=== PATIENT | male | born 1930 | race Caucasian/White ===

== ENCOUNTER 2017-02-10 10:31 | Inpatient (IN) | payer MEDICARE, MEDICAID ==
[2017-02-10] VITALS (14 sets, daily range): BP systolic 87–122; BP diastolic 50–67; PULSE 64–90; RESP 13–17; O2SAT 95–100
[~2017-02-10] VITALS: Ht 177.8 cm; Wt 81.8 kg
[~2017-02-10 10:31] MED LIST: Dexamethasone 4 mg/mL Inj ONE; EPHEDrine/NS 5 mg/mL 5 mL Syringe ONE; Ondansetron 2 mg/mL 2 mL Inj ONE; Phenylephrine/NS 100 mCg/mL 10 mL Syringe IVPUSH ONE; Propofol 10,000 mCg/mL 20 mL Inj ONE
--- NOTE | 2017-02-10 11:16 | ED.REPORT ---
HPI- Male Date of Service Feb 10, 2017 ED Provider: Ramon Chacko PA-C Mr. Ledesma is an 86-year-old gentleman with a history of dementia presenting with a chief complaint of swollen scrotum. Patient can provide no pertinent history, denies pain and is unsure why he is in the hospital. According to records his nurse practitioner noted swollen scrotum this morning and referred to emergency department via BLS for evaluation. Patient's resuscitation status is DO NOT RESUSCITATE, comfort measures only. Nursing Notes Stated Complaint: SCROTAL EDEMA Chief Complaint: Male Abdominal Pain Nursing Notes Reviewed: Yes Allergies: Coded Allergies: No Known Allergies (Unverified , 02/10/17) No Active Prescriptions or Reported Meds General Time Seen by MD: 11:08 Chief Complaint Scrotal swelling Past Medical History Past Medical History Dementia Past medical history obtained from records from [facility]: Coronary artery disease next sign hypothyroid Hypertension Hypercholesterolemia next line BPH Atrial fibrillation History of recurrent urinary tract infections History of feeding difficultie Type II diabetes History of sick sinus syndrome, third-degree AV block, subsequent pacemaker placement History CVA history of [place]'s Past Surgical History Pacemaker insertion History of right-sided carotid endarterectomy Social History Patient has a POLST form indicating DO NOT RESUSCITATE, comfort measures only dated December 2015 Comes from [facility] Drug Use: Denies drug use Review of Systems Unable to Obtain ROS Mental status Physical Exam General: Elderly, frail, no acute distress. Head: Atraumatic, normocephalic. Eyes: No scleral icterus or injection. No discharge. Vision grossly intact. ENT: Voice clear, hearing grossly intact. Respiratory: Regular rate and rhythm. Breath sounds present, clear to auscultation and equal bilaterally. No respiratory distress. No increased work of breathing, speaks in complete sentences. Cardiovascular: Regular rate and rhythm, without murmur, gallop or rub. No pedal edema. Gastrointestinal: Abdomen flat and mildly tender suprapubically without rebound. Bowel sounds normoactive. Genitourinary: Normal uncircumcised penis, scrotum is red and swollen, firm and tender. Is difficult to differentiate anatomy. Skin: Warm and dry. Neurological: Grossly nonfocal. Psychological: Alert and oriented. He is unsure why he is in the hospital. Initial Vital Signs Vital Signs (First) Date Time Temp Pulse Resp B/P Pulse Ox O2 Delivery O2 Flow Rate FiO2 02/10/17 10:31 36.7 68 16 101/58 95 Room Air Initial VS: Reviewed, Vital signs abnormal Interpretation & Diagnostics Lab Results Interpretation Result Diagram: 02/10/17 1205 02/10/17 1205 Test 02/10/17 12:05 White Blood Count 15.9th/mm3 (3.8-10.1) Red Blood Count 3.48mil/mm3 (4.40-5.80) Hemoglobin 10.6g/dL (13.8-17.2) Hematocrit 32.4% (41.0-50.0) Mean Corpuscular Volume 93.1fL (81-100) Mean Corpuscular Hemoglobin 30.5pg (27.0-35.0) Mean Corpuscular Hemoglobin Concent 32.7% (32.0-37.0) Red Cell Distribution Width 12.7% (12.3-15.4) Platelet Count 455bil/L (150-400) Neutrophils (%) (Auto) 77.8% (40-74) Lymphocytes (%) (Auto) 11.1% (14-46) Monocytes (%) (Auto) 8.9% (4-12) Eosinophils (%) (Auto) 1.2% (0-5) Basophils (%) (Auto) 0.2% (0-3) Sodium Level 130mEq/L (134-144) Potassium Level 3.6mEq/L (3.5-5.2) Chloride Level 91mEq/L (97-108) Carbon Dioxide Level 25mmol/L (18-29) Blood Urea Nitrogen 17mg/dL (8-27) Creatinine 0.84mg/dL (0.76-1.27) Estimat Glomerular Filtration Rate 92mL/min (>59) Glucose Level 110mg/dL (60-99) Lactic Acid Level 1.2mmol/L (0.4-2.0) Calcium Level 9.1mg/dL (8.5-10.1) Total Bilirubin 0.4mg/dL (0.0-1.2) Aspartate Amino Transf (AST/SGOT) 18U/L (0-50) Alanine Aminotransferase (ALT/SGPT) 19U/L (0-44) Alkaline Phosphatase 62U/L (25-160) Total Protein 6.8g/dL (6.4-8.4) Albumin 2.6g/dL (3.4-5.0) Lipase 23U/L (13-60) Lab Results Interpretation: CBC positive leukocytosis CMP normal Lactic acid normal Blood cultures 2 pending Urinalysis Re-Eval/Medical Decision Med Decision/Clinical Course 86-year-old bedridden male with significant dementia presents chief complaint swollen testes. He can provide no significant history. Her son reveals a left testicular abscess as well as epididymitis and intratesticular cyst. Treatment is initiated with morphine, Zosyn, vancomycin, IV fluids after discussion with Dr. Uriostegui. Dr. Thomas, agrees with plan to admit, reviews imaging and state the patient to surgery. He is unsure of his last meal. Discussed case with hospitalist, who accepts admission. Patient is transferred to the floor in stable condition. Source of Hx: Old records Consultation #1: Referral / Consult Name: Esther Thomsa MD Call Returned at: 11:57 Note: Agrees with plan to admit, will see in the hospital. Consultation #2: Referral / Consult Name: Rik Casey MD Consulted With: Hospitalist Call Returned at: 12:36 Dust Operator: Accepts admit Consultation #3: Referral / Consult Name: Esther Thomas MD Consulted With: Urology Call Returned at: 12:41 Note: Discussed the case with Dr. Thomas, who reviewed imaging and plans to take the patient to surgery. Patient is unsure of the last time he ate. She requests he remained nothing by mouth. Discharge & Departure Departure Notes COMFORT CARE Impression: Primary Impression: Testicular abscess Additional Impressions: Orchitis Sepsis Balanitis Disposition: ADMITTED TO HOSPITAL EDSupervising Provider for APC: Boni Uriostegui MD Attending Statment This is an 86-year-old male sent from the skilled nursing she seen by the mid- level provider. Person to interview and examine the patient. Found to have a scrotal abscess. He is a diabetic, and did have a marginal blood pressures concerning for sepsis. Although he does not have an elevated lactic acid. The patient is however fully comfort care. However the scrotal abscess appears quite uncomfortable so management is being pursued. The plan is operative management in the OR. His receiving IV fluids, given the hypotension-is also receiving a dose of steroids. The records sent from the skilled nursing mention [place]'s in the past, so random cortisol is been added-although is not on any steroid replacement, and is unclear if there is consistent and accurate diagnosis in the past. The patient's had a Vega placed with a large amount of purulent material around the penis and under the foreskin identified. The patient's been started on vancomycin and Zosyn Ramon Chacko PA-C Feb 10, 2017 11:16 Boni Uriostegui MD Feb 10, 2017 14:10
[2017-02-10] MEDS ORDERED: Vancomycin Dose per Pharmacist XX ONE (11:50)
[2017-02-10] MEDS ORDERED: 0.9% Sodium Chloride 1,000 ML IV ONE (11:50)
[2017-02-10] MEDS ORDERED: Piperacillin-Tazo 3.375 Gm Inj 3.375 GM in Dextrose 5% Minibag Plus 50 ML IV ONE (11:50)
[2017-02-10] MEDS ORDERED: HYDROmorphone 0.5 mg/0.5 mL iSecure Syringe IVPUSH PRN (11:50)
[2017-02-10 12:25] LABS: BASOPHILS % (AUTO) 0.2 % (0-3); EOSINOPHILS % (AUTO) 1.2 % (0-5); MONOCYTES % (AUTO) 8.9 % (4-12); Mean Corpuscular Hemoglobin 30.5 pg (27.0-35.0); Mean Corpuscular Volume 93.1 fL (81-100); NEUTROPHILS % (AUTO) 77.8 % (40-74); Platelet Count 455 bil/L (150-400)
[2017-02-10] MEDS ORDERED: Vancomycin Inj 1,500 MG in 0.9% Sodium Chloride 500 ML IV ONE (12:30)
[2017-02-10] MEDS ORDERED: 0.9% Sodium Chloride 500 ML IV ONE (14:00)
[2017-02-10] MEDS ORDERED: Hydrocortisone 50 mg/mL 2 mL Inj IVPUSH ONE (14:10)
[2017-02-10] MEDS ORDERED: Lidocaine 2% 6mL Topical Jelly TOPICAL ONE (14:10)
--- NOTE | 2017-02-10 14:29 | DRSVH ---
PROCEDURE: US TESTICULAR SONOGRAM WITH DOPPLER INDICATIONS: swollen scrotum TECHNIQUE: Real-time scanning was performed of the scrotum and testicles, with image documentation. Color and p ulse Doppler interrogation was performed of both testicles. COMPARISON: None. FINDINGS: Right: Testicle is normal in size at 2.8 x 1.7 x 2.7 cm, and diffusely heterogeneous. Epididymis is normal in overall size and morphology. Subcentimeter epididymal cyst. No hydrocele or varicoceles. Overlying scrotal skin is normal in thickness. Left: Testicle is normal in size at 3.4 x 2 point the portal cm, and diffusely heterogeneous and the re is a roughly 18 mm simple testicular cyst. . Epididymis is normal in overall size and morphology . Subcentimeter epididymal cyst. Complex left hydrocele is present with multiple punctate echogenic foci present raising the question of internal gas. Overlying scrotal skin is abnormally thickened.. Doppler: Color and pulse Doppler demonstrate normal and symmetric arterial flow in both testicles. IMPRESSION: 1. Heterogeneity of the testicles bilaterally with increased vascularity involving the left testicle raising the question of orchitis. Correlate clinically. Continued sonographic surveillance of both testicles is recommended. 2. Complex left hydrocele present with probable internal gas given the sonographic appearance and abs cess (pyoocele) is suspected. Urologic consultation is recommended. 3. Bilateral epididymal cysts. Dictated by: Christopher GRAHAM Interpreted: Chris Pritchett MD on 02/10/2017 at 13:50 Approved by: Chris Pritchett M.D. on 02/10/2017 at 14:26
[2017-02-10] MEDS ORDERED: Polyethylene Glycol (PEG) 17 Gm Powder PO PRN (15:10)
[2017-02-10] MEDS ORDERED: Alum-Mag Hydrox-Simeth 30 mL Suspension PO PRN (15:10)
[2017-02-10] MEDS ORDERED: Ondansetron 2 mg/mL 2 mL Inj IVPUSH PRN ×2 (15:10→16:25)
[2017-02-10 15:27] LABS: APPEARANCE,URINE TURBID (CLEAR,HAZY); COLOR,URINE STRAW (YELLOW); PH,URINE 6.5 (5.0-8.0)
[2017-02-10 15:28] LABS: OCCULT BLOOD,URINE MODERATE (NEGATIVE); UROBILINOGEN,URINE NORMAL (NORMAL)
[2017-02-10] MEDS ORDERED: Lactated Ringer's 1,000 ML IV ONE (15:37)
[2017-02-10] MEDS ORDERED: Vancomycin 1,000 mg Inj IRRIGATION ONE (16:00)
[2017-02-10] MEDS ORDERED: Bupivacaine-MPF 0.5% 30 mL Inj INFILTRATE ONE (16:00)
[2017-02-10] MEDS ORDERED: Piperacillin-Tazo 3.375 Gm Inj 3.375 GM in Dextrose 5% Minibag Plus 50 ML IV SCH ×2 (16:00→16:30)
[2017-02-10] MEDS ORDERED: Gentamicin 40 mg/mL 2 mL Inj IRRIGATION ONE (16:00)
[2017-02-10] MEDS ORDERED: Atropine 0.4 mg/mL Inj IVPUSH PRN (16:25)
[2017-02-10] MEDS ORDERED: fentaNYL-PF 50 mCg/mL 2 mL Inj IVPUSH PRN (16:25)
[2017-02-10] MEDS ORDERED: Lactated Ringer's 1,000 ML IV SCH (16:25)
[2017-02-10] MEDS ORDERED: Lactated Ringer's 500 ML IV PRN (16:25)
[2017-02-10] MEDS ORDERED: Phenylephrine 10,000 mCg/mL Inj IVPUSH PRN (16:25)
[2017-02-10] MEDS ORDERED: Labetalol 5 mg/mL 4 mL Inj IV PRN (16:25)
[2017-02-10] MEDS ORDERED: EPHEDrine Sulfate 50 mg/mL Inj IVPUSH PRN (16:25)
--- NOTE | 2017-02-10 16:25 | PCM.HPANE ---
Patient Data Surgeon Admitting Provider:Rik Casey MD Attending Provider:Rik Casey MD Primary Care Physician:Yasmin Schumacher MD Other Provider: Reason for Visit Arthritis/Testicular Abscess Ht/WT & BMI Height (Feet): 5 Height (Inches): 10 Weight (Kilograms): 81.8 Body Mass Index Allergies Coded Allergies: No Known Allergies (Unverified , 02/10/17) Past Anesthesia History Anesthesia History: Denies:: Abnormal Airway, Anesthesia Reactions, Difficult Intubation, Fam Anesthesia Reaction, Fam Malignant Hypertherm, Malignant Hyperthermia Diabetes History Hx Diabetes?: Yes (DMII) History History of ENT Problems?: No HEENT History: Denies:: Abnormal Airway Cataracts Difficult Intubation Dysphagia Glaucoma Hearing Problem Sinus Problem TMJ Denture Type: Full- Upper Full- Lower Teeth Condition: Missing Teeth Hx of Heart Problems?: No Cardiovascular History: Positive for:: Hypertension Denies:: AICD Abdominal Aortic Aneurism Atrial Fibrillation Cardiac Surgery Chest Pain Congestive Heart Failure Coronary Artery Disease Edema Heart Murmur Irregular Heartbeat Pacemaker Peripheral Vascular Rheumatic Fever Thrombophlebitis Valvular Heart Disease Hx of Respiratory Problem?: No Respiratory History: Denies:: Asthma COPD Chest Surgery Cough Dyspnea Emphysema Hemoptysis Oxygen Administration Pneumonia Pulmonary Embolism Tuberculosis Use of C-PAP Machine Use of Inhalers / NEBS Hx Neurologic Problems?: Yes Neurological History: Positive for:: Alzheimer's Disease Denies:: CVA Dementia Dizziness Headaches Multiple Sclerosis Parkinson's Disease Peripheral Neuropathy Seizures TIA Hx of GI Problems?: No Gastrointestinal History: Denies:: Cirrhosis Diverticulitis Gall Bladder Disease Gastroesphageal Reflux Gastrointestinal Bleeding Heartburn Hepatitis Hiatal Hernia Liver Disease Rectal Bleeding Hx of Problems?: Yes Genitourinary History: Positive for:: Urinary Tract Infection Denies:: HX of Hemodialysis Kidney Stones HX of Peritoneal Dialysis: No Male Hx: Positive for:: Scrotal Mass (abscess) Denies:: Prostate Problems Testicular Surgery Skin History: Denies:: History Skin Disorders? Pressure Ulcers Hx Musculoskeletal Problems?: No Musculoskeletal History: Denies:: Back Injury Degenerative Joint Fibromyalgia Joint Replacement Musculoskeletal Trauma Myasthenia Gravis Osteoarthritis Rheumatoid Arthritis Systemic Lupus Hx of Psycho/Social Problems?: No Psycho Social History: Denies:: Anxiety Bipolar Disorder Hx Depression Suicide Attempt Hx Surgeries?: Yes Other History: Denies:: Cancer Endocrine Disease Hospitalization Thyroid Disease History Blood Transfusions: Denies:: Accept Blood Products? Blood Transfuse Reaction Blood Transfusions Hx Diabetes: Yes (DMII) Hx Alcohol Use: NoHx Substance Use: No Stop/Bang Risk Assessment Category Category 1A: Patient has history of documented sleep apnea, and HAS NOT received any narcotic, sedative or anesthesia administration during this stay. Category 1B: Patient has history of documented sleep apnea, and HAS received any narcotic , sedative or anesthesia administration during this stay Category 2: Patient has SUSPECTED Obstructive Sleep Apnea, and HAS received any narcotic , sedative or anesthesia administration during this stay. Category 3: Patient has SUSPECTED Obstructive Sleep Apnea and HAS NOT received narcotic, sedative or anesthesia administration during this stay. Category 4: Outpatient in Procedural Areas with known sleep apnea or who screen positive for High Risk via the STOP/BANG questionnaire. Exam Exam Vital Signs Vital Signs Date Time Temp Pulse Resp B/P Pulse Ox O2 Delivery O2 Flow Rate FiO2 02/10/17 14:26 36.8 65 17 111/50 97 Room Air 02/10/17 13:54 36.0 64 87/52 98 Room Air 02/10/17 12:24 36.8 70 17 91/57 95 Room Air 02/10/17 10:31 36.7 68 16 101/58 95 Room Air General Appearance: Other (severe dementia consent obtained from [facility]) HEENT/AIRWAY: MP 2, Neck Movement (FROM), Mouth Opening (3 FBMO) Lungs: Normal Air Movement Heart: Other (pacemaker, paced rhythm over A fib) Meds/Labs/Diagnostics Admission Meds Current Medications Sodium Chloride 1,000 ml @ 0 mls/hr Q0M ONCE IV Last administered on 02/10/17 12:17; Start 02/10/17 at 11:50; Stop 02/10/17 at 11:58; Status DC Piperacillin Sod/ Tazobactam Sod 3.375 gm/Dextrose/ Water 50 ml @ 100 mls/hr ONCE ONCE IV Last administered on 02/10/17 12:17; Start 02/10/17 at 11:50; Stop 02/10/17 at 12:25; Status DC Vancomycin HCl 1500 mg/Sodium Chloride 500 ml @ 333.333 mls/hr ONCE ONCE IV Last administered on 02/10/17 12:52; Start 02/10/17 at 12:30; Stop 8/4/17 at 13: 59; Status DC Sodium Chloride (Normal Saline) 500 ml @ 0 mls/hr Q0M ONCE IV Last administered on 02/10/17t 14:04; Start 02/10/17 at 14:00; Stop 02/10/17 at 14:01; Status DC Labs Test 02/10/17 12:05 02/10/17 14:56 White Blood Count 15.9th/mm3 (3.8-10.1) Red Blood Count 3.48mil/mm3 (4.40-5.80) Hemoglobin 10.6g/dL (13.8-17.2) Hematocrit 32.4% (41.0-50.0) Mean Corpuscular Volume 93.1fL (81-100) Mean Corpuscular Hemoglobin 30.5pg (27.0-35.0) Mean Corpuscular Hemoglobin Concent 32.7% (32.0-37.0) Red Cell Distribution Width 12.7% (12.3-15.4) Platelet Count 455bil/L (150-400) Neutrophils (%) (Auto) 77.8% (40-74) Lymphocytes (%) (Auto) 11.1% (14-46) Monocytes (%) (Auto) 8.9% (4-12) Eosinophils (%) (Auto) 1.2% (0-5) Basophils (%) (Auto) 0.2% (0-3) Sodium Level 130mEq/L (134-144) Potassium Level 3.6mEq/L (3.5-5.2) Chloride Level 91mEq/L (97-108) Carbon Dioxide Level 25mmol/L (18-29) Blood Urea Nitrogen 17mg/dL (8-27) Creatinine 0.84mg/dL (0.76-1.27) Estimat Glomerular Filtration Rate 92mL/min (>59) Glucose Level 110mg/dL (60-99) Lactic Acid Level 1.2mmol/L (0.4-2.0) Calcium Level 9.1mg/dL (8.5-10.1) Total Bilirubin 0.4mg/dL (0.0-1.2) Aspartate Amino Transf (AST/SGOT) 18U/L (0-50) Alanine Aminotransferase (ALT/SGPT) 19U/L (0-44) Alkaline Phosphatase 62U/L (25-160) Total Protein 6.8g/dL (6.4-8.4) Albumin 2.6g/dL (3.4-5.0) Lipase 23U/L (13-60) Plan Impression Patient chart reviewed, patient interviewed and anesthestic plan with risks, benefits, and alternatives discussed, and informed consent obtained. NPO per Anesth. Guidelines: Yes ASA Physical Status: ASA4 Plus Emergency (severe alzheimers) Anesthetic Plan: GA Bene/Risks/Altern/Consents: Yes HP Complete Prior to Induction: Yes Colt Blanc MD Feb 10, 2017 15:26
--- NOTE | 2017-02-10 16:41 | PCM.HPMED ---
Subjective Date of Service Feb 10, 2017 Primary Provider: Admitting Physician: Rik Casey MD Primary Care Physician: Yasmin Schumacher MD Attending Physician: Rik Casey MD Admit Status: From the Emergency Department, Admit to [facility] Team Chief Complaint: Testicular swelling History of Present Illness: 86 yo M h/o CAD, HTN, HLD, Atrial fibrillation, T2DM, Hx of Sick Sinus Syndrome s/p AICD, Hx of CVA, Hx of recurrent UTI's of severe dementia presenting with Left scrotal swelling. Pt is confused and note sure why in hospital. Pt can provide no history. History taken from chart and [facility]'s records. Per ED note- Her son reveals a left testicular abscess as well as epididymitis and intratesticular cyst. Treatment is initiated with morphine, Zosyn, vancomycin, IV fluids after discussion with Dr. Uriostegui. Dr. Thomas, agrees with plan to admit, reviews imaging and state the patient to surgery. .marginal blood pressures concerning for sepsis. Although he does not have an elevated lactic acid. The patient is however fully comfort care. However the scrotal abscess appears quite uncomfortable so management is being pursued. The plan is operative management in the OR. His receiving IV fluids, given the hypotension-is also receiving a dose of steroids. The records sent from the [facility] mention [place] in the past, so random cortisol is been added- although is not on any steroid replacement, and is unclear if there is consistent and accurate diagnosis in the past. The patient's had a Vega placed with a large amount of purulent material around the penis and under the foreskin identified. The patient's been started on vancomycin and Zosyn. Allergies Coded Allergies: No Known Allergies (Unverified , 02/10/17) PMH Dementia Past medical history obtained from records from [facility]: Coronary artery disease next sign hypothyroid Hypertension Hypercholesterolemia next line BPH Atrial fibrillation History of recurrent urinary tract infections History of feeding difficultie Type II diabetes History of sick sinus syndrome, third-degree AV block, subsequent pacemaker placement History CVA history of [place] Surgical History Pacemaker insertion History of right-sided carotid endarterectomy Social History Hx Alcohol Use: No Hx Substance Use: No Exam Vital Signs Vital Sign - Last Date Time Temp Pulse Resp B/P Pulse Ox O2 Delivery O2 Flow Rate FiO2 02/10/17 14:26 36.8 65 17 111/50 97 Room Air Exam General: Elderly, frail, no acute distress. Head: Atraumatic, normocephalic. Eyes: No scleral icterus or injection. No discharge. Vision grossly intact. ENT: Voice clear, hearing grossly intact. Respiratory: Regular rate and rhythm. Breath sounds present, clear to auscultation and equal bilaterally. No respiratory distress. No increased work of breathing, speaks in complete sentences. Cardiovascular: Regular rate and rhythm, without murmur, gallop or rub. No pedal edema. Gastrointestinal: Abdomen flat and mildly tender suprapubically without rebound. Bowel sounds normoactive. Genitourinary: Normal uncircumcised penis, scrotum is red and swollen, firm and tender. Is difficult to differentiate anatomy. Skin: Warm and dry. Neurological: Grossly nonfocal. Psychological: Alert and oriented. He is unsure why he is in the hospital. Lab and Diagnostics Result Diagram: 02/10/17 1205 02/10/17 1205 X-Rays, CTs and MRIs 02/10- Testicular US- 1. Heterogeneity of the testicles bilaterally with increased vascularity involving the left testicle raising the question of orchitis. Correlate clinically. Continued sonographic surveillance of both testicles is recommended. 2. Complex left hydrocele present with probable internal gas given the sonographic appearance and abscess (pyoocele) is suspected. Urologic consultation is recommended. 3. Bilateral epididymal cysts Assessment & Plan 86 yo M h/o CAD, HTN, HLD, Atrial fibrillation, T2DM, Hx of Sick Sinus Syndrome s/p AICD, Hx of CVA, Hx of recurrent UTI's of severe dementia presenting with Left scrotal swelling with US finding of Scrotal Abscess, Epididymitis. #Scrotal Abscess s/p Incision and drainage/debridement 02/10- POA, active- 02/10- Testicular US- 1. Heterogeneity of the testicles bilaterally with increased vascularity involving the left testicle raising the question of orchitis. 2. Complex left hydrocele present with probable internal gas given the sonographic appearance and abscess (pyoocele) is suspected. Urologic consultation is recommended. 3. Bilateral epididymal cysts. Lactic Acid 1.2 -Urology, Dr. Thomas consulted. Took pt to OR. -IV Abx- vancomycin and Zosyn given in ED. -Keep NPO until passes swallow. -Pain IV Fentanyl prn. -IVF NS @100 cc/hr. HTN- chronic, active- hold off blood pressure medications. T2DM- Chronic, active. - Sliding Scale Insulin, low dose. CAD- chronic, stable. HLD- chronic, stable. Atrial fibrillation- chronic, stable. Hx of Sick Sinus Syndrome s/p AICD- chronic, stable. cardiac monitoring. Hx of CVA- chronic stable. Code- per POLST, DNR/DNI. Comfort measures only. Dispo- Patient is admitted under inpatient status expected length of stay greater than 2 midnights due to severity of presenting symptoms, risk of adverse events, and complexity of treatment plan. Pain Evaluation: Adequate Pain Control Resuscitation Status: DNR/DNI:Do Not Resuscitate/Intubate Rik Casey MD Feb 10, 2017 16:41
--- NOTE | 2017-02-10 16:56 | PCM.ANEP1 ---
Post Anesthesia PACU Phase 1 Assessment Vital Signs Vital Signs Date Time Temp Pulse Resp B/P Pulse Ox O2 Delivery O2 Flow Rate FiO2 02/10/17 14:26 36.8 65 17 111/50 97 Room Air 02/10/17 13:54 36.0 64 87/52 98 Room Air 02/10/17 12:24 36.8 70 17 91/57 95 Room Air 02/10/17 10:31 36.7 68 16 101/58 95 Room Air Anesthetic Administered: GA Level of Alertness: Sleepy, easy to arouse DIAZ's with Equal Strength: Yes Pain: No Pain Scale Score: 6 Nausea or Vomiting: No CV Function & Hydration Stable: Yes Airway Device: Oxygen Delivery: Room Air Lungs: Normal Air Movement Dermatome Level: Full Sensation PACU Phase 2 Assessment Complications: No Follow up Care: N/A Patient Instructions Provided: N/A Colt Blanc MD Feb 10, 2017 16:56
--- NOTE | 2017-02-10 17:00 | PCM.SURGPO ---
Immediate Operative Note Date of Surgery: Feb 10, 2017 Pre Operative Diagnosis scrotal abscess scrotal cellulitis epididymoorchitis phimosis pyuria leukocytocis Post Operative Diagnosis Same Procedure Incision and drainage/debridement Scrotal Abscess with cultures and packing of wound Dorsal Slit (to severely phimotic foreskin) Cystoscopy (urine culture sent) Surgeon and Field Representatives Director Surgeon: William Assistants: None Findings severe phimosis- dorsal slit done pyuria/hematuria, poor visualization but no urethral or bladder foreign bodies or strictures noted Scrotal abscess. Foul smelling purulence drained and sent for culture pyuria- urine sent for culture at cystoscopy. Complications There were no periprocedural complications identified. Surgical Specimen Removed: No Specimen sent to Pathology: Not applicable Anesthetic Administered: GA Grafts, Implants: None Output, Estimated Blood Loss: 50 Blood Admin during surgery: Esther Zavaleta MD Feb 10, 2017 17:00
[2017-02-10 17:10] LABS: APPEARANCE,URINE CLOUDY (CLEAR,HAZY); COLOR,URINE STRAW (YELLOW); OCCULT BLOOD,URINE LARGE (NEGATIVE); PH,URINE 5.5 (5.0-8.0); UROBILINOGEN,URINE NORMAL (NORMAL)
--- NOTE | 2017-02-10 17:17 | PCM.HPSURG ---
Subjective Date of Service: Feb 10, 2017 Referring Provider: Admitting Physician: Rik Casey MD Primary Care Physician: Yasmin Schumacher MD Attending Physician: Rik Casey MD Chief Complaint I was asked by NETO Chacko and Dr Escalante in the [facility] ER for evaluation and treament recommendations for an 86 y/o gentleman with probably scrotal abscess and epididymoorchitis in setting of dementia and debility. History of Present Illness Pt is an 86 y/o gentleman living at [facility] who was sent to the ER by his care team there for evaluation of scrotal swelling, erythema, scrotal pain and foul smelling urine. His history is also significant for: h/o CAD, HTN, HLD, Atrial fibrillation, T2DM, Hx of Sick Sinus Syndrome s/p AICD, Hx of CVA, Hx of recurrent UTI's of severe dementia presenting with Left scrotal swelling. Pt is confused and note sure why in hospital. Pt can provide no history. Hospitalist History taken from chart and [facility]'s records. At exam he has discomfort with manipulation of the scrotum which is erythematous , enlarged and has findings c/w abscess/purulence anterior inferior scrotal wall with L testicular changes c/w orchitis. Urine in bag is foul in appearance. pt with severe phimosis obscuring meatus/glans completely. Willis in good position despite this. Pt appears to have good hygiene and care in that his genitalia are clean and the skin in good condition with the exception of what appears to be an acute process. He had vancomycin and zosyn orderd in the ER with plans for admission to the hospitalist service He was taken to the OR after consent obtained from his POA- nephew who agreed. His severe phimosis was dealt with with dorsal slit which should make catheter care much easier and also possibly decrease his risk of UTI somewhat in that cleaning the glans will be possible Incision to the ant scrotal wall did reveal large pocket of thin foul smelling purulence which was sent for culture urine from the bladder was sent for culture, no clear urethral stricure or injury or foreign body was seen though visibility to flexible cysoscopy was fair at best. The wound was irrigated with vancomycin and gentamycin and packed with wet to dry gauze. Allergy Allergies: Coded Allergies: No Known Allergies (Unverified , 02/10/17) Social History Hx Alcohol Use: No Hx Substance Use: No PMH HEENT History History of ENT Problems?: No HEENT History: Denies:: Abnormal Airway Cataracts Difficult Intubation Dysphagia Glaucoma Hearing Problem Sinus Problem TMJ Cardiovascular History History of Heart Problems?: No Cardiovascular History: Positive for:: Hypertension Denies:: AICD Abdominal Aortic Aneurism Atrial Fibrillation Cardiac Surgery Chest Pain Congestive Heart Failure Coronary Artery Disease Edema Heart Murmur Irregular Heartbeat Pacemaker Peripheral Vascular Rheumatic Fever Thrombophlebitis Valvular Heart Disease Respiratory History of Respiratory Problem: No Respiratory History: Denies:: Asthma COPD Chest Surgery Cough Dyspnea Emphysema Hemoptysis Oxygen Administration Pneumonia Pulmonary Embolism Tuberculosis Use of C-PAP Machine Use of Inhalers / NEBS Neurological History Hx Neurologic Problems?: Yes Neurological History: Positive for:: Alzheimer's Disease Denies:: CVA Dementia Dizziness Headaches Multiple Sclerosis Parkinson's Disease Peripheral Neuropathy Seizures TIA Gastrointestinal History HX of GI Problems?: No Gastrointestinal History: Denies:: Cirrhosis Diverticulitis Gall Bladder Disease Gastroesphageal Reflux Gastrointestinal Bleeding Heartburn Hepatitis Hiatal Hernia Liver Disease Rectal Bleeding Genitourinary History Hx of Gu Problems?: Yes Genitourinary History: Positive for: Urinary Tract Infection Denies: HX of Hemodialysis Kidney Stones Female/Male History Reproductive History Male: Positive for: Scrotal Mass (abscess) Denies: Prostate Problems Skin History Skin History: Denies:: History Skin Disorders? Pressure Ulcers Musculoskeletal History Hx Musculoskeletal Problems?: No Musculoskeletal History: Denies:: Back Injury Degenerative Joint Fibromyalgia Joint Replacement Musculoskeletal Trauma Myasthenia Gravis Osteoarthritis Rheumatoid Arthritis Systemic Lupus Psycho Social History Hx of Psycho/Social Problems?: No Psycho Social History: Denies:: Anxiety Bipolar Disorder Hx Depression Suicide Attempt Other History Other History: Denies:: Cancer Endocrine Disease Hospitalization Thyroid Disease Diabetes: Yes (DMII) Social History Hx Alcohol Use: NoHx Substance Use: No Review of Systems Constitutional: Denies: Fever ENT: Reports: Dental Problems (dentures), Membranes Dry Cardiovascular: Denies: Chest Pain Respiratory: Denies: Cough Gastrointestinal: Reports: Abdominal Pain, Change in Appetite, Denies: Nausea Genitourinary: Reports: Other (foul odor, cloudy green urine in bag, chronic willis) Musculoskeletal: Reports: Back Pain, Deformity, Limitation of Function, Neck Pain Skin: Reports: Dry or Flakiness, Rash, Denies: Bruising Neurological: Reports: Confusion, Seizures, Weakness Psychologic: Reports: Disorientation, Denies: Nervousness Endocrine: Denies: Polyuria H&P Surgical Exam Exam General: Cooperative (confused, pleasant, not oriented to place or situation, chronic dementia) Neck: Supple (midline trachea, no scars, ) Lungs: Normal Air Movement (no audible ronchi or wheezes no tachypnea) Heart: Exam Unremarkable (warm ext tr dep edema, RR, no JVD supine), Other ( pacemaker, paced rhythm over A fib) Abdomen: Benign, Soft (no masses) Extremities: Warm Neuro: Other (clear speech, confused, symmetric face, assymetric strength) Catheters: Urethral 2 Way Willis (cloudy greenisn urine, foul odor) Additional Information: Scrotal exam as above see HPI Assessment & Plan Assessment Scrotal Abscess Epidydymoorchitis L Scrotal cellulitis pyuria chronic willis phimosis dementia advanced Plan: As above, debrided, cultures pending from scrotal purulence and from bladder urine at cystoscopy Needs WOUND Care consult to facilitate discharge planning Urology will change dressing first time tomorrow 02/11, have requested supplies to bedside-then intital changes will be bid until management taken over by wound care per their recs bacitracin to site of dorsal slit/foreskin bid Agree with broad spectrum antibiotic coverage otherwise until cultures return, supportive care per Hospitalist service. OK to change fluff dressing as needed Will follow with you this admission and can arrange outpatient f/u ultimately after weekend thank you for allowing us to participate in this patient's care please do not hesitate to call with any questions or concerns Resuscitation Status: DNR/DNI:Do Not Resuscitate/Intubate Esther Thomas MD Feb 10, 2017 17:17
[2017-02-10] MEDS ORDERED: Glucose 40% Oral Gel 15 Gm Tube PO PRN (17:25)
--- NOTE | 2017-02-10 17:46 | NUR ---
Post Op Pt arrived to [facility] room 1022 at 1746 via his own bed. ABX running. 3L O2 via NC. Pt showed no s/s of pain or SOB. Pt awakens to his name but is disoriented to time and place. Reminded pt multiple times about place and oriented pt to his procedure. Kenefic alarm placed for safety. Educated pt on use of call light. Scrotal dressing C/D/I. Vega catheter patent and draining to gravity. Care continues.
[2017-02-10] MEDS: 0.9% Sodium Chloride 1,000 ML IV SCH (18:05)
[2017-02-10] MEDS: Insulin LISPRO 300 Unit/3 mL Inj SUBQ SCH ×2 (22:00→22:21)
[2017-02-10] MEDS: Famotidine Inj 20 MG in IV Premix 1 EACH IV SCH (22:12)
[2017-02-11 00:11] VITALS: BP 99/51; PULSE 72; RESP 16; O2SAT 94
[2017-02-11] MEDS: Piperacillin-Tazo 3.375 Gm Inj 3.375 GM in Dextrose 5% Minibag Plus 50 ML IV SCH ×3 (02:19→17:44)
[2017-02-11 04:48] VITALS: BP 94/58; PULSE 66; RESP 18; O2SAT 94
[2017-02-11] MEDS: 0.9% Sodium Chloride 1,000 ML IV SCH ×2 (04:58→15:02)
--- NOTE | 2017-02-11 06:46 | NUR ---
Mentation Remains alert and confused per baseline. Difficulty expressing needs and answering questions during assessment. Appears frightened at times when attempting to perform care but otherwise appears relaxed and comfortable.
[2017-02-11 07:51] LABS: BASOPHILS % (AUTO) 0.3 % (0-3); EOSINOPHILS % (AUTO) 2.1 % (0-5); MONOCYTES % (AUTO) 7.7 % (4-12); Mean Corpuscular Hemoglobin 30.4 pg (27.0-35.0); Mean Corpuscular Volume 95.3 fL (81-100); NEUTROPHILS % (AUTO) 74.9 % (40-74); Platelet Count 424 bil/L (150-400)
[2017-02-11] MEDS: Insulin LISPRO 300 Unit/3 mL Inj SUBQ SCH ×4 (08:00→21:05)
[2017-02-11] MEDS: Famotidine Inj 20 MG in IV Premix 1 EACH IV SCH ×2 (09:07→20:03)
[2017-02-11] MEDS ORDERED: Bacitracin Ointment Packet TOPICAL SCH (09:10)
--- NOTE | 2017-02-11 09:13 | PCM.PNMED ---
Subjective Date of Service Feb 11, 2017 Subjective Pt is s/p I&D, BP has been 90/50's overnight. Exam Vital Signs Vital Sign - Last Date Time Temp Pulse Resp B/P Pulse Ox O2 Delivery O2 Flow Rate FiO2 02/11/17 04:48 36.8 66 18 94/58 94 Room Air 02/10/17 18:12 3.00 Intake and Output 02/10/17 02/10/17 02/11/17 Cumulative From/Thru 15:00 23:00 07:00 02/10/17 10:31 - 02/11/17 06:24 Intake Total 1500 ml 750 ml 120 ml 2370 ml Output Total 600 ml 900 ml 1500 ml Balance 1500 ml 150 ml -780 ml 870 ml Intake Oral 0 ml 120 ml 120 ml IV Total 1500 ml 750 ml 0 ml 2250 ml Output Urine Total 550 ml 900 ml 1450 ml Estimated Blood Loss 50 ml 50 ml Exam General: Elderly, AOX1- to name only. Can answer questions and follow commands. frail, no acute distress. Head: Atraumatic, normocephalic. Eyes: No scleral icterus or injection. No discharge. Vision grossly intact. ENT: Voice clear, hearing grossly intact. Respiratory: Regular rate and rhythm. Breath sounds present, clear to auscultation and equal bilaterally. No respiratory distress. No increased work of breathing, speaks in complete sentences. Cardiovascular: Regular rate and rhythm, without murmur, gallop or rub. No pedal edema. Gastrointestinal: Abdomen flat and mildly tender suprapubically without rebound. Bowel sounds normoactive. Genitourinary: Normal uncircumcised penis, s/p I&D site- bandaged w/ sling. minimal serosanguinous drainage. Skin: Warm and dry. Neurological: Grossly nonfocal. IVs and Medications Medications Reviewed: Medications were reviewed in detail Lab and Diagnostics Result Diagram: 02/11/1772902/11/17729 X-Rays, CTs and MRIs 02/10- Testicular US- 1. Heterogeneity of the testicles bilaterally with increased vascularity involving the left testicle raising the question of orchitis. Correlate clinically. Continued sonographic surveillance of both testicles is recommended. 2. Complex left hydrocele present with probable internal gas given the sonographic appearance and abscess (pyoocele) is suspected. Urologic consultation is recommended. 3. Bilateral epididymal cysts Assessment & Plan 86 yo M [facility] h/o CAD, HTN, HLD, Atrial fibrillation, T2DM, Hx of Sick Sinus Syndrome s/p AICD, Hx of CVA, Hx of recurrent UTI's of severe dementia presenting with Left scrotal swelling with US finding of Scrotal Abscess, Epididymitis s/p Incision and drainage/debridemen 02/10. #Sepsis due to L Scrotal Abscess s/p Incision and drainage/debridement 02/10- POA , active- SIRS Criteria T- 34.9 WBC 15.9->11.5. BP trending low, has inc w/ IVF. 02/10- Testicular US- 1. Heterogeneity of the testicles bilaterally with increased vascularity involving the left testicle raising the question of orchitis. 2. Complex left hydrocele present with probable internal gas given the sonographic appearance and abscess (pyoocele) is suspected. . 3. Bilateral epididymal cysts. Severe Phimiosis s/p dorsal slit 02/08- likely predisposed to Epididymitis and resulting infection. -Urology, Dr. Thomas consulted, performed I&D 02/10. Significant foul smelling purulent material drained ant scrotal wall, sent cx. -Follow up Blood, Wound, Urine Cultures. MRSA- screen pending. Lactic Acid 1.2 -IV Abx- vancomycin and Zosyn given in ED. c/w Zosyn Day#2. Deescalate pending Cx's. -Diet- Clear Liquid. -Pain IV Fentanyl prn. Tylenol PO. -IVF NS @100 cc/hr. -Wound Care consult. -Urology, Dr. Thomas 02/10 Recs- needs WOUND Care consult to facilitate discharge planning Urology will change dressing first time 02/11, have requested supplies to bedside- then intital changes will be bid until management taken over by wound care per their recs bacitracin to site of dorsal slit/foreskin bid Agree with broad spectrum antibiotic coverage otherwise until cultures return Upon discharge can f/u as outpatient. HTN- chronic, active- Hm meds Losartan- hold off blood pressure medications 2/2 to hypotension. BP 90's/50's. T2DM- Chronic, active. - Sliding Scale Insulin, low dose. CAD- chronic, stable. c/w ASA 325mg po qd. Once BP improves, restart Isosorbide. HLD- chronic, stable. c/w statin. Atrial fibrillation- chronic, stable. - not rate control or anticoagulation. Obtain EKG. Hx of Sick Sinus Syndrome s/p AICD- chronic, stable. cardiac monitoring. Hx of CVA- chronic stable- c/w ASA. Code- per POLST, DNR/DNI. Comfort measures only. Dispo- Patient is admitted under inpatient status expected length of stay greater than 2 midnights due to severity of presenting symptoms, risk of adverse events, and complexity of treatment plan. GI Prophylaxis: H2 abutista VTE Prophylaxis: Sub-Q Enoxaparin VTE Mechanical Devices: Intermittant Pneumatic CD Resuscitation Status: DNR/DNI:Do Not Resuscitate/Intubate Rik Casey MD Feb 11, 2017 09:12
[2017-02-11] MEDS ORDERED: ASPI325T32 PO (09:16)
[2017-02-11] MEDS ORDERED: DIPH25CA6 PO (09:16)
[2017-02-11] MEDS ORDERED: DOCU-41 PO (09:16)
[2017-02-11] MEDS ORDERED: GUAI237L83 PO (09:16)
[2017-02-11] MEDS ORDERED: MULT1CAP33 PO (09:16)
[2017-02-11] MEDS ORDERED: HC/M110O2 TP (09:16)
[2017-02-11] MEDS ORDERED: PRAV40TA PO (09:16)
[2017-02-11] MEDS ORDERED: DEXT1DRO8 BOTH_EYES (09:16)
[2017-02-11] MEDS ORDERED: IPRA3AMP IH (09:16)
[2017-02-11] MEDS ORDERED: MAGN400O4 PO (09:16)
[2017-02-11] MEDS ORDERED: ISOS30TA4 PO (09:16)
[2017-02-11] MEDS ORDERED: TAMS0.4C98 PO (09:16)
[2017-02-11] MEDS ORDERED: CITA10TA9 PO (09:16)
[2017-02-11] MEDS ORDERED: [UNRECOGNIZED DRUG - OTHER] (09:16)
[2017-02-11] MEDS ORDERED: LEVO-86 PO (09:16)
[2017-02-11] MEDS ORDERED: OXYB10TA PO (09:16)
[2017-02-11] MEDS ORDERED: TRIC1BAR TP (09:16)
[2017-02-11] MEDS ORDERED: MECL-114 PO (09:16)
[2017-02-11] MEDS ORDERED: LOSA25TA21 PO (09:16)
[2017-02-11 09:40] VITALS: BP 104/60; PULSE 70; RESP 16; O2SAT 98
[2017-02-11] MEDS ORDERED: HYDROmorphone 0.5 mg/0.5 mL iSecure Syringe ONE (11:36)
--- NOTE | 2017-02-11 11:52 | PCM.PNSURG ---
Subjective Date of Service: Feb 11, 2017 Date of Service: Feb 11, 2017 Visit Information: Reason for Visit Arthritis/Testicular Abscess Surgery/Surgery Date Post-Op Day # 1: dorsal slit, scrotal incision and drainage of abscess Date of Admission: Feb 10, 2017 at 13:24 Hospital Day # 2 Subjective: Pt w/o complaints (advanced dementia) comfortable overnight, given tylenol only for discomfort doing well getting Zosyn Dressing minimal drainage Postop General: No Complaints Gastrointestinal: Tolerating Oral Feedings Pain Management: PO, IV Push Neurological: Confusion (baseline dementia/confusion) Postop Activity: Other (no limitations based on surgery, pt normally bedbound) Objective Vital Sign- Last 8 Hours Date Time Temp Pulse Resp B/P Pulse Ox O2 Delivery O2 Flow Rate FiO2 02/11/17 09:40 70 16 104/60 98 Room Air 02/11/17 04:48 36.8 66 18 94/58 94 Room Air Intake and Output- Last 8 Hour 02/11/17 Cumulative From/Thru 07:00 02/10/17 10:31 - 02/11/17 06:24 Intake Total 120 ml 2370 ml Output Total 900 ml 1500 ml Balance -780 ml 870 ml Intake Oral 120 ml 120 ml IV Total 0 ml 2250 ml Output Urine Total 900 ml 1450 ml Estimated Blood Loss 50 ml General: No Acute Distress (sleeping comfortably, c/o pain with dressing change , pre medicated with 0.5 dilaudid) Neck: Other (midline trachea, no scars) Heart: Other (RR, warm ext, dry, tr dep edema) Abdomen: Benign Neuro: Other (baseline confusion) Catheters: Urethral 2 Way Vega (pink urine, clear) Result Diagram: 02/11/17 0730 02/11/17 0730 Additional Information: Scrotal wound clean, w/o odor, dressing changed wet to dry with nursing staff present foreskin clean with bacitracin about incision line from dorsal slit Assessment & Plan Impression Healing- h/o scrotal abscess- possible orchitis, epididymitis now decompressed, w/o odor and clean phimosis now with dorsal slit exposing meatus incontinent of stool likely compounding his infection risk Problems: Plan BID wet to dry dressing changes, nursing instructed during dressing change. Biggest challenge is to fill space entirely with moist gauze to avoid place for accumulation of fluid/purulence. Premedicate as appropriate and needed. bacitracin to foreskin bid Need wound care consult when possible wound care will be needed post discharge cultures pending from urine and from pus at debridement agree with broad spectrum antibiotics and supportive care Pain Management: per hospitalist team VTE Prophylaxis: Sub-Q Enoxaparin Resuscitation Status: DNR/DNI:Do Not Resuscitate/Intubate Esther Thomas MD Feb 11, 2017 11:52
[2017-02-11 13:57] VITALS: BP 90/52; PULSE 65; RESP 15; O2SAT 96
[2017-02-11] MEDS ORDERED: Albuterol-Ipratropium 3 mL Inhalation Solution NEB PRN (14:40)
--- NOTE | 2017-02-11 18:24 | NUR ---
Activity Pt is alert, but confused at baseline Alzheimers. Is cooperative with care and only complained on pain with dressing inspection and dressing changes. Tylenol given in AM and IV medications given prior to dressing change. Pt has blanchable redness on bottom and was turned q2. MD did dressing change in room of packed wet-to-dry kerlix with ABD and mesh underwear over. Antibiotic ointment applied prior to dressing change. Pt had low BP in AM, then given IV pain medications and had repeat low BP. MD aware. Pt has IV fluids infusing and is drinking. Vega in place and draining to gravity, pink tinged urine. Bed in low, call light in reach, continue q1 hour rounding.
--- NOTE | 2017-02-11 19:08 | OP ---
[address] [address] OPERATIVE REPORT PATIENT: SHIMA TELLEZ V : 1930 MR#: [id number] ADMIT: 02/10/2017 JOB ID: [id number] DATE OF SURGERY: 02/10/2017 SURGEON: Esther Thomas MD PROCEDURE: 1 Incision and drainage of large scrotal abscess 4-5 cm in size, 2 dorsal slit to the severely phimotic foreskin, and 3 flexible cystoscopy. ANESTHESIA: General. PREOPERATIVE DIAGNOSIS(ES): Scrotal abscess, pyuria, severe phimosis. POSTOPERATIVE DIAGNOSIS(ES): Scrotal abscess, pyuria, severe phimosis. INDICATIONS: The patient is an 86-year-old gentleman who is a [facility] patient, who is known to have longstanding phimosis and noted to have new onset scrotal swelling, scrotal erythema, tenderness. Brought to the emergency department at [facility] on February 10 for evaluation with ultrasound revealing cellulitis of the scrotum as well as likely scrotal abscess and likely epididymal orchitis on the left. Dirty urine. He and his power of litigation attorney, given his state of dementia, were counseled about options and they elected to go ahead and proceed with a palliative incision and drainage of the scrotum as indicated for his pain. His DNR, DNI was suspended for the course of his procedure. PROCEDURE IN DETAIL: After appropriate informed consent was obtained over the phone with the patient's power of litigation attorney (nephew) he was taken to the operating room. SCDs were placed. Adequate general anesthesia was induced. He was carefully placed in the supine position. All pressure points were carefully padded. Cleaned, prepped, and draped in the usual sterile fashion. His Vega catheter was removed. His tight phimosis revealed no ability to inspect the glans. A dorsal slit was performed here using two Stephany clamps on the dorsal side oversewn with 3-0 chromic with cautery to the edges. The tissue was phimotic and somewhat sclerotic. Hemostasis well controlled with the above maneuvers. Also freed up with lysis of adhesions to his glans, making the meatus quite visible and much more easily accessible. This area was cleaned up completely. We then performed flexible cystoscopy. There was quite a bit of cloudy urine and some hematuria, however no obvious evidence of urethral injury or urethral difficulties. The Vega catheter was replaced and allowed to drain to gravity. We then turned our attention to his scrotum. Incision was made overlying the anterior area where we felt fluctuance. There was immediate return of very foul-smelling thin green purulence. This was cultured and evacuated out. The incision was opened up to several centimeter to facilitate packing. We used the Water-Pik with 3 L of vancomycin and gentamicin solution to irrigate this out copiously. A small amount of fibrinous tissue was excised and otherwise the wound was quite clean, no longer with foul odor. No other pockets or areas of concern were identified. It was packed with sterile normal saline gauze wet-to-dry. A scrotal support was applied. We did a cord block, as well as a penile block, and injected the incision area of the scrotum with Marcaine plain for postop pain control. The patient tolerated the procedure very well and was awakened and taken back to the postanesthesia care unit prior to admission to the floor to the Medicine service. HERMILO
[2017-02-11] MEDS: Bacitracin Ointment Packet TOPICAL SCH (20:03)
[2017-02-11 20:33] VITALS: BP 102/61; PULSE 60; O2SAT 100
--- NOTE | 2017-02-11 23:56 | NUR ---
Dressing change positioned patient to side lying position. Tylenol given. Moderate amount of bloody drainage on Kerlex when removed. Sprayed area with NS and gently cleaned outer skin. Repacked wound with kerlex soaked in NS - and dry Kerlex to outside area then covered with ABD pad and clean brief. Painful when repacking done. Remained in side lying position until pain decreased then repositioned to his back for sleep.
[2017-02-12] MEDS: 0.9% Sodium Chloride 1,000 ML IV SCH ×2 (00:58→10:01)
[2017-02-12] MEDS: Piperacillin-Tazo 3.375 Gm Inj 3.375 GM in Dextrose 5% Minibag Plus 50 ML IV SCH ×3 (01:58→17:25)
[2017-02-12] MEDS: fentaNYL-PF 50 mCg/mL 2 mL Inj IV PRN ×2 (02:03→10:38)
[2017-02-12 04:33] VITALS: BP 123/65; PULSE 56; RESP 16; O2SAT 96
[2017-02-12] MEDS: Insulin LISPRO 300 Unit/3 mL Inj SUBQ SCH ×4 (08:00→22:00)
[2017-02-12] MEDS: Bacitracin Ointment Packet TOPICAL SCH ×2 (10:01→20:29)
[2017-02-12] MEDS: Famotidine Inj 20 MG in IV Premix 1 EACH IV SCH ×2 (10:01→20:30)
[2017-02-12] MEDS: Isosorbide Mononitrate 30 mg ER24 Tablet PO SCH (10:02)
[2017-02-12 10:30] VITALS: BP 98/53; PULSE 65; RESP 15; O2SAT 93
--- NOTE | 2017-02-12 10:47 | NUR ---
Social Work: Attempted Assessment/Multidisciplinary Rounds D: EMR reviewed. Pt is an 86 y/o male admitted for arthritis/testicular abscess per H&P. SW attempted to meet with pt at bedside to conduct initial assessment. Pt not appropriate historian. Pt diagnosed with Dementia at baseline. SW attempted to locate NOK. SW told by RN a woman name Pallavi is pt's contact. No information on file. SW will attempt to contact [facility] to determine pt's NOK to complete assessment. A: TBD P: TBD NATHALIE Segura
--- NOTE | 2017-02-12 12:29 | PCM.PNMED ---
Subjective Date of Service Feb 12, 2017 Subjective Pt did c/o of pain during dressing change. Otherwise denies pain when lying in bed. Exam Vital Signs Vital Sign - Last Date Time Temp Pulse Resp B/P Pulse Ox O2 Delivery O2 Flow Rate FiO2 02/12/17 10:30 36.6 65 15 98/53 93 Room Air 02/10/17 18:12 3.00 Intake and Output 02/11/17 02/11/17 02/12/17 Cumulative From/Thru 15:00 23:00 07:00 02/10/17 10:31 - 02/12/17 06:15 Intake Total 3456 ml 1744 ml 7570 ml Output Total 800 ml 1950 ml 4250 ml Balance 2656 ml -206 ml 3320 ml Intake Oral 1273 ml 437 ml 1830 ml IV Total 2183 ml 1307 ml 5740 ml Output Urine Total 800 ml 1950 ml 4200 ml Estimated Blood Loss 50 ml # Bowel Movements 2 2 Exam General: Elderly, AOX2. Can answer questions and follow commands. frail, no acute distress. More alert than prior day. Head: Atraumatic, normocephalic. Eyes: No scleral icterus or injection. No discharge. Vision grossly intact. ENT: Voice clear, hearing grossly intact. Respiratory: Regular rate and rhythm. Breath sounds present, clear to auscultation and equal bilaterally. No respiratory distress. No increased work of breathing, speaks in complete sentences. Cardiovascular: Regular rate and rhythm, without murmur, gallop or rub. No pedal edema. Gastrointestinal: Abdomen flat and mildly tender suprapubically without rebound. Bowel sounds normoactive. Genitourinary: Normal uncircumcised penis, s/p I&D site- bandaged/packed. minimal serosanguinous drainage. Skin: Warm and dry. Neurological: Grossly nonfocal. IVs and Medications Medications Reviewed: Medications were reviewed in detail Lab and Diagnostics Result Diagram: 02/11/1772902/11/17729 X-Rays, CTs and MRIs 02/10- Testicular US- 1. Heterogeneity of the testicles bilaterally with increased vascularity involving the left testicle raising the question of orchitis. Correlate clinically. Continued sonographic surveillance of both testicles is recommended. 2. Complex left hydrocele present with probable internal gas given the sonographic appearance and abscess (pyoocele) is suspected. Urologic consultation is recommended. 3. Bilateral epididymal cysts Assessment & Plan 86 yo M resident of [facility] h/o CAD, HTN, HLD, Atrial fibrillation , T2DM, Hx of Sick Sinus Syndrome s/p AICD, Hx of CVA, Hx of recurrent UTI's of severe dementia presenting with Left scrotal swelling with US finding of Scrotal Abscess, Epididymitis s/p Incision and drainage/debridemen 02/10. #Sepsis due to L Scrotal Abscess s/p Incision and drainage/debridement 02/10- POA , active- SIRS Criteria T- 34.9 WBC 15.9->11.5. BP trending low, has inc w/ IVF. 02/10- Testicular US- 1. Heterogeneity of the testicles bilaterally with increased vascularity involving the left testicle raising the question of orchitis. 2. Complex left hydrocele present with probable internal gas given the sonographic appearance and abscess (pyoocele) is suspected. . 3. Bilateral epididymal cysts. Severe Phimiosis s/p dorsal slit 02/08- likely predisposed to Epididymitis and resulting infection. -Urology, Dr. Thomas consulted, performed I&D 02/10. Significant foul smelling purulent material drained ant scrotal wall, sent cx. -Follow up Blood, Wound, Urine Cultures. MRSA- screen pending. Lactic Acid 1.2 -IV Abx- vancomycin and Zosyn given in ED. c/w Zosyn since 02/10. Deescalate antibiotics pending Cx's. -Pain IV Fentanyl prn. Tylenol PO. -IVF NS @100 cc/hr, stopped, Encourage PO intake. -Urology, Dr. Thomas 02/10 Recs- -WOUND Care consult to facilitate discharge planning, ordered on 02/12. -bacitracin to site of dorsal slit/foreskin bid - agrees c/w broad spectrum antibiotic coverage otherwise until cultures return - Upon discharge can f/u as outpatient. HTN- chronic, active- Hm meds Losartan- hold off blood pressure medications 2/2 to hypotension. BP 90's/50's. T2DM- Chronic, active. - Not on home med. - Sliding Scale Insulin, low dose. - Fingersticks have all been within normal limits. CAD- chronic, stable. Resumed Isosorbide Mononitrate, ASA 325mg po qd. HLD- chronic, stable. c/w statin. Atrial fibrillation- chronic, stable. - not on rate control or anticoagulation agent at . Hx of Sick Sinus Syndrome s/p AICD- chronic, stable. cardiac monitoring. Hx of CVA- chronic stable- c/w ASA. Code- per POLST, DNR/DNI. Comfort measures only. Dispo- Patient is admitted under inpatient status expected length of stay greater than 2 midnights due to severity of presenting symptoms, risk of adverse events, and complexity of treatment plan. GI Prophylaxis: H2 bautista VTE Prophylaxis: Sub-Q Enoxaparin VTE Mechanical Devices: Intermittant Pneumatic CD Resuscitation Status: DNR/DNI:Do Not Resuscitate/Intubate Rik Casey MD Feb 12, 2017 12:29
--- NOTE | 2017-02-12 13:27 | NUR ---
dressing changed Fentanyl 50 mg given IV, very painful packing and dressing change , drainage sero-sanguinous, not malodorous
[2017-02-12 14:22] VITALS: PULSE 62; O2SAT 95
[2017-02-12 14:42] VITALS: BP 98/52; PULSE 65; RESP 15; O2SAT 95
--- NOTE | 2017-02-12 15:34 | PCM.PNSURG ---
Subjective Date of Service: Feb 12, 2017 Date of Service: Feb 12, 2017 Visit Information: Reason for Visit Arthritis/Testicular Abscess Surgery/Surgery Date Post-Op Day # 2 Dorsal Slit, I&D scrotal abscess/packing Date of Admission: Feb 10, 2017 at 13:24 Hospital Day # 3 Subjective: pt sleeping quietly between dressing changes baseline actitvity with advanced dementia Postop General: No Complaints Gastrointestinal: Tolerating Oral Feedings Pain Management: IV Push Neurological: Weakness, Other (baseline confusion/dementia) Postop Activity: Other (with assistance only) Objective Vital Sign- Last 8 Hours Date Time Temp Pulse Resp B/P Pulse Ox O2 Delivery O2 Flow Rate FiO2 02/12/17 14:42 36.1 65 15 98/52 95 Room Air 02/12/17 14:22 62 95 Room Air 02/12/17 10:30 36.6 65 15 98/53 93 Room Air Intake and Output- Last 8 Hour 02/12/17 Cumulative From/Thru 07:00 02/10/17 10:31 - 02/12/17 06:15 Intake Total 1744 ml 7570 ml Output Total 1950 ml 4250 ml Balance -206 ml 3320 ml Intake Oral 437 ml 1830 ml IV Total 1307 ml 5740 ml Output Urine Total 1950 ml 4200 ml Estimated Blood Loss 50 ml # Bowel Movements 2 2 General: No Acute Distress (comfortable, sleeping, ) Neck: Other (midline trachea, no scars) Lungs: Normal Air Movement (no wheezing, no tachypnea) Heart: Exam Unremarkable (warm dry ext) Abdomen: Benign Neuro: Other (baseline confusion/dementia, speech clear) Catheters: Urethral 2 Way Vega Result Diagram: 02/11/17 0730 02/11/17 0730 Additional Information: dorsal slit clean, healing, meatus visible scrotal dressing intact per nursing notes clean bed with no odor pending wound care evaluation Assessment & Plan Impression Healing- h/o scrotal abscess- possible orchitis, epididymitis now decompressed, w/o odor and clean phimosis now with dorsal slit exposing meatus incontinent of stool likely compounding his infection risk Scrotal Abscess culture Providentia Stuartii Amp R Ancef R Gent/Tobra R Amikacin S Cefuroxime S Pip/Tazo S Amp/Sulbactam S Problems: Plan BID wet to dry dressing changes, nursing instructed during dressing change. Biggest challenge is to fill space entirely with moist gauze to avoid place for accumulation of fluid/purulence. Premedicate as appropriate and needed. bacitracin to foreskin bid Wound abscess culture back- treatment per [facility] service Need wound care consult when possible wound care will be needed post discharge VTE Prophylaxis: Sub-Q Enoxaparin Resuscitation Status: DNR/DNI:Do Not Resuscitate/Intubate Esther Thomas MD Feb 12, 2017 15:34
[2017-02-12] MEDS ORDERED: 0.9% Sodium Chloride 250 ML IV ONE (15:50)
[2017-02-12 16:38] VITALS: BP 100/59; PULSE 61; RESP 16; O2SAT 93
[2017-02-12 20:30] VITALS: BP 123/62; PULSE 62; RESP 16; O2SAT 98
[2017-02-13 00:30] VITALS: BP 129/72; PULSE 64; RESP 16; O2SAT 97
[2017-02-13] MEDS: fentaNYL-PF 50 mCg/mL 2 mL Inj IV PRN (01:06)
[2017-02-13] MEDS: Piperacillin-Tazo 3.375 Gm Inj 3.375 GM in Dextrose 5% Minibag Plus 50 ML IV SCH ×2 (01:08→08:05)
--- NOTE | 2017-02-13 02:46 | NUR ---
Pain/Dressing Gauze changed and new gauze packed, wet to dry, ABD over top. Pt complians of pain despite receiving fentanyl, does not understand the necessity of the procedure, and did swat at this RN's arm. NAC was in room and helped monitor his hands and arms to prevent striking. Pt is paced without signs of CP or SOB. Care continues
[2017-02-13 05:10] VITALS: BP 147/69; PULSE 66; RESP 16; O2SAT 99
[2017-02-13 05:47] LABS: EOSINOPHILS % (AUTO) 5.9 % (0-5); MONOCYTES % (AUTO) 5.4 % (4-12); Mean Corpuscular Hemoglobin 30.9 pg (27.0-35.0); Mean Corpuscular Volume 95 fL (81-100); NEUTROPHILS % (AUTO) 58.4 % (40-74); Platelet Count 471 bil/L (150-400)
[2017-02-13 05:48] LABS: BASOPHILS % (AUTO) 0.4 % (0-3)
[2017-02-13] MEDS: Insulin LISPRO 300 Unit/3 mL Inj SUBQ SCH ×2 (07:50→12:00)
[2017-02-13] MEDS: Famotidine Inj 20 MG in IV Premix 1 EACH IV SCH ×2 (08:05→20:52)
[2017-02-13] MEDS: Isosorbide Mononitrate 30 mg ER24 Tablet PO SCH (08:05)
[2017-02-13] MEDS: Bacitracin Ointment Packet TOPICAL SCH ×2 (08:06→20:54)
[2017-02-13 09:08] VITALS: BP 114/52; PULSE 63; RESP 16; O2SAT 98
--- NOTE | 2017-02-13 11:49 | NUR ---
Case Management- IMM explained and signed by ZAINA Ledesma. Caitlin Kauffman RN / UR
--- NOTE | 2017-02-13 13:01 | NUR ---
Inpatient Wound Nurse Patient seen for scrotal incision wound care. Wound measures 4 cm L x 3 cm W x 3 cm D. Beefy red, serosanguinous drainage, non-odorous. Wet gauze released easily and without complication, although patient was combative, insulting, and demanded that care stop immediately. Since dressing changes are source of agitation for patient, goal is once daily dressing changes with product that can absorb large amount of exudate. For this reason, a strip of Aquasorb Extra Ag was placed into wound bed, then covered with ABD pad and secured with gauze panty. Blue line on ABD pad should be placed away from body surface, as it is the least resistant side. Hopefully this dressing regimen can be completed quickly and with only two staff, causing patient least amount of agitation. Aim for once daily dressing changes. If dressing saturates during day shift, CWON will change and determine alternative regimen. Hopefully patient can return to SNF where once daily dressing changes can be accommodated in environment patient prefers. Wound vac not appropriate at this time due to patient's agitation and location of wound would likely result in frequent leaks and poor seal. Patient would need to be very still for shaving, drape application, and changes twice weekly which he does not appear able to do, not able to follow instructions. CWON will follow patient daily.
--- NOTE | 2017-02-13 15:42 | CONS ---
[address] [address] CONSULTATION REPORT PATIENT: SHIMA TELLEZ V : 1930 MR#: [id number] ADMIT: 02/10/2017 JOB ID: [id number] DATE OF SERVICE: 02/13/[address] Whatley for this timely consult. REASON FOR CONSULTATION: Scrotal abscess with epididymal orchitis and phimosis in an elderly demented gentleman. HISTORY OF THE PRESENT ILLNESS: The patient suffers from quite severe dementia and very little can be obtained from discussing the situation with him. He tells me that sometime, he is not sure when, he developed some scrotal pain and was brought to this hospital where, "They cut off part of my balls." He now says he feels fine as long as people do not mess with the dressings in his groin and is currently declining to have me manipulate those dressings. He has underlying severe dementia and is aware that he is in some sort of medical facility, but beyond that, really has no idea of his location or time, nor is he able to give any sort of a chronologic or logical history. Today, he says he does not have any fevers, chills, sweats, cough, shortness of breath, nausea or vomiting, and he is hungry and requests once again that no one manipulate his dressings any further. I was able to discuss this case in great detail with the wound management aide, who just changed his dressings earlier this morning, and apparently, it was quite an ordeal as the patient was very combative. PAST MEDICAL HISTORY: 1. Dementia. 2. Coronary artery disease. 3. Hypertension. 4. BPH. 5. Hyperlipidemia. 6. AFib. 7. Recurrent UTIs. 8. Phimosis. 9. Type 2 diabetes. 10. Pacer secondary to sick sinus syndrome. 11. History of CVA. 12. Status post right-sided carotid endarterectomy. SOCIAL HISTORY: The patient is a nondrinker, nonsmoker. 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 He tells me he has never and has no children, and it is unclear where he lived before the [facility], though it is possible he lived at the family home all his life, which is what he indicates. FAMILY HISTORY: Completely unknown to the patient. REVIEW OF SYSTEMS: Was done, but is probably very unreliable in this very demented gentleman. He tells me he has no fevers, chills, headache. No sore throat. No significant cough, nausea, vomiting, or diarrhea. He does have some pain in his groin or scrotal region which he says is made worse when people manipulate the dressings and he is going to decline any additional exam right now. Remainder of the review of systems basically negative. Note, that he does tell me he walks around without difficulty and notes from [facility] indicate he does not walk and he is wheelchair bound, so the veracity of any this review of systems is highly questionable. PHYSICAL EXAMINATION: Reveals an afebrile, elderly gentleman, lying supine in his hospital bed. He has been afebrile since his admission three days ago. Temperature is now 36.7, pulse 63, respiratory rate 16, blood pressure 114/52. He is saturating well on room air and he is in no acute distress. He looks quite nontoxic. Examination of the head is unremarkable. His eyes are without conjunctivitis or scleral icterus. 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 His oral cavity is unremarkable. No thrush, hairy leukoplakia or pharyngitis. His neck is reasonably supple. His lungs are clear bilaterally. Cardiac tones: Irregular rate and rhythm. Pacer is palpable but nontender in the left upper chest. The abdomen is soft and nontender except for in the suprapubic area where there is some minimal tenderness. A Vega catheter is present. He has no inguinal adenopathy. He is wearing a lace undergarment which holds in place extensive dressings that were just placed by the web content specialist earlier this morning. I spoke to her in detail about it, and she said there was about a 4 x 3 x 3 cm deep wound involving the scrotum, which has been partially debrided. The area appeared to be healing well. There was no foul odor or purulent discharge per her report. The patient's extremities are free of synovitis or cellulitis. His lower extremity strength is intact at about 4+ over five in both lower extremities. He has no notable sensory abnormalities but it is difficult to test this. No thyromegaly is appreciated, and there is no evidence for head trauma. As noted, the patient is oriented x1. The surgical notes from Dr. Thomas were reviewed. The patient underwent incision and debridement of scrotal abscess with packing of the wound. Also a dorsal slit was done to repair deeply phimotic foreskin and a cystoscopy was done. It is also notable that the scrotal abscess was very foul-smelling, suggesting that there were anaerobes. LABORATORY STUDIES: Include a white count that was 16,000 when he came in. It is now 7000. Creatinine is 30. Platelet count 471,000. Creatinine 0.75. Urinalysis packed with white cells. Culture grew Aerococcus so we will not be getting susceptibilities for as there is no standardized technique. A swab from the scrotal abscess, which is erroneously labeled penis, actually grew Providencia stuartii, which is moderately resistant, including resistant to aminoglycosides except amikacin as well as first-generation cephalosporins. IMPRESSION: This is an unfortunate elderly gentleman with multiple underlying medical problems including primarily dementia, who is admitted with scrotal abscess which has undergone vigorous and complete debridement by Dr. Thomas. Foul-smelling purulent material was found at the time of surgery, and the cultures revealed Providencia. Urine culture grew Aerococcus, which is occasionally described as a true urinary pathogen, but its significance in this situation is unclear. Review of the literature suggests that essentially all Aerococcus isolates are susceptible to betalactams. Management of this case is a bit difficult because of the patient's underlying dementia. It seems highly unlikely he will tolerate a wound VAC to be applied for any period of time to his scrotum, and instead, we will attempt to manage the patient with once-a-day dressing changes. He is probably not an ideal candidate for long-term PICC line either and I do not think one will be necessary in this situation. RECOMMENDATIONS: 1. I will discontinue the Zosyn he is receiving, as we do not need the pseudomonal coverage. 2. Will treat with ertapenem 1 g IV q.24 h. 3. Once the patient is ready for transition to oral therapy, I think he could go to cefdinir 300 p.o. b.i.d. and Flagyl 500 p.o. b.i.d., each to complete a total of two weeks of therapy. 4. I will continue to see this patient with you going forward.
--- NOTE | 2017-02-13 15:46 | PCM.PNSURG ---
Subjective Date of Service: Feb 13, 2017 Date of Service: Feb 13, 2017 Visit Information: Reason for Visit Arthritis/Testicular Abscess Surgery/Surgery Date Post-Op Day # 3 dorsal slit, cystoscopy and incision/drainage scrotal abscess Date of Admission: Feb 10, 2017 at 13:24 Hospital Day # 4 Subjective: no issues resting comfortably dislikes dressing changes, dementia precludes good understanding of necessity of dressing changes Postop General: Shortness of Breath Gastrointestinal: Tolerating Oral Feedings Pain Management: IV Push Neurological: Other (baseline demnentia) Postop Activity: Other (bedbound) Objective Vital Sign- Last 8 Hours Date Time Temp Pulse Resp B/P Pulse Ox O2 Delivery O2 Flow Rate FiO2 02/13/17 09:08 36.7 63 16 114/52 98 Room Air 02/13/17 09:08 63 98 Room Air 02/13/17 09:00 Supplement Oxygen Intake and Output- Last 8 Hour 02/13/17 Cumulative From/Thru 07:00 02/10/17 10:31 - 02/13/17 06:41 Intake Total 1460 ml 75397 ml Output Total 6450 ml Balance 1460 ml 4054 ml Intake Oral 3304 ml IV Total 1460 ml 7200 ml Output Urine Total 6400 ml Estimated Blood Loss 50 ml # Bowel Movements 2 General: No Acute Distress Lungs: Normal Air Movement Heart: Exam Unremarkable Abdomen: Benign Neuro: Other (baseline dementia, clear speech) Catheters: Urethral 2 Way Vega Result Diagram: 02/13/17 0515 02/13/17 0515 Assessment & Plan Impression Healing- h/o scrotal abscess- possible orchitis, epididymitis now decompressed, w/o odor and clean phimosis now with dorsal slit exposing meatus incontinent of stool likely compounding his infection risk Scrotal Abscess culture results back urine culture results back Problems: Plan Wound care per wound nurse Antibiotics per medicine service suspect wound care will be limting factor for patient's discharge- plans as per wound nurse (agree if once daily change can keep wound clean and avoid accumulation of debris/fluid, this would be appropriate, otherwise would need more frequent. complicated by his lack of understanding/insight into need for dressing changes WILL become less uncomfortable over time and patient may continue to resist out of habit/lack of understanding VTE Prophylaxis: Sub-Q Enoxaparin Resuscitation Status: DNR/DNI:Do Not Resuscitate/Intubate Arisco,Esther M MD Feb 13, 2017 15:46
[2017-02-13] MEDS: Ertapenem Inj 1,000 MG in 0.9% Sodium Chloride 50 ML IV SCH (16:00)
--- NOTE | 2017-02-13 16:01 | NUR ---
NUTRITION ASSESSMENT: ASSESS: 86 YO male admitted for testicular abscess, POD # 3 for I and D. Pt with advanced dementia with history of feeding difficulties. Pt po intake currently variable at 0-75% of meals. PMHx: Advanced dementia, CAD, HTN, A-fib, UTI, feeding difficulties, DM type 2, sick sinus syndrome s/p pacemaker, CVA, Addisons. LABS: Reviewed. Alb 2.6. MEDS: Reviewed. GI: BM x 2 (02/12) SKIN: testicular incision for abscess. CURRENT WT: 81.8 kg. DIET: Diabetic, soft, glucerna all trays. PO 0-75% of meals. EST. NEEDS: 1362-5772 kcals (25-30 kcals/kg BW), 100-125 g protein (1.2-1.5 g/kg BW) NUTRITION DIAGNOSIS: 1.) Inadequate oral intake related to advanced dementia/feeding difficulties as evidenced by PO intake 0-75% x 3 days. NUTRITION INTERVENTION: 1.) Recommend continuing current diet and supplements at this time. MONITOR / EVAL: PO intake, labs, wounds, nutritional status. Follow per moderate nutritional risk guidelines.
--- NOTE | 2017-02-13 16:40 | PCM.PNMED ---
Subjective Date of Service Feb 13, 2017 Subjective Denies any pain or discomfort Exam Vital Signs Vital Sign - Last Date Time Temp Pulse Resp B/P Pulse Ox O2 Delivery O2 Flow Rate FiO2 02/13/17 09:08 36.7 63 16 114/52 98 Room Air 02/10/17 18:12 3.00 Intake and Output 02/12/17 02/12/17 02/13/17 Cumulative From/Thru 15:00 23:00 07:00 02/10/17 10:31 - 02/13/17 06:41 Intake Total 1474 ml 1460 ml 44632 ml Output Total 2200 ml 6450 ml Balance -726 ml 1460 ml 4054 ml Intake Oral 1474 ml 3304 ml IV Total 1460 ml 7200 ml Output Urine Total 2200 ml 6400 ml Estimated Blood Loss 50 ml # Bowel Movements 0 2 Exam Pleasantly demented. General: Alert, Cooperative, No Acute Distress Head: Normal Eyes: Scleral Anicteric Nose: Mucous Membr Moist/[place] Mouth: Mucous Membr Moist/[place] Neck: Supple Chest & Lungs: Chest Wall Normal, Clear to auscultation & percussion Cardiovascular: Regular Rate/Rhythm Pulses: NL carotid, radial, femoral, DP, PT Abdomen: Non-tender, Non-distended, Normoactive bowel tones, Soft Genitialial: Abnormal (scrotal dressing in place) Extremities: No cyanosis/clubbing/edma bilat Neurological: Grossly Neurologically Intact, Normal Speech IVs and Medications Medications Reviewed: Medications were reviewed in detail Lab and Diagnostics Result Diagram: 02/13/17 0515 02/13/17 0515 X-Rays, CTs and MRIs 02/10- Testicular US- 1. Heterogeneity of the testicles bilaterally with increased vascularity involving the left testicle raising the question of orchitis. Correlate clinically. Continued sonographic surveillance of both testicles is recommended. 2. Complex left hydrocele present with probable internal gas given the sonographic appearance and abscess (pyoocele) is suspected. Urologic consultation is recommended. 3. Bilateral epididymal cysts Assessment & Plan 86 yo M resident of [facility] h/o dementia, CAD, HTN, HLD, Atrial fibrillation, T2DM, Hx of Sick Sinus Syndrome s/p AICD, Hx of CVA, Hx of recurrent UTI's presenting with Left scrotal swelling with US finding of Scrotal Abscess, Epididymitis s/p Incision and drainage/debridemen 02/10. # Reported acute sepsis on admission clinically ruled out # Acute left scrotal abscess. Present on admission. Ongoing - Post incision and drainage of large scrotal abscess 4-5 cm in size, dorsal slit to the severely phimotic foreskin, and flexible cystoscopy on 02/10/17 - Appreciate urology consult. Will followup with recs - Continue with wound care - Vancomycin and Zosyn given in ED and then continued Zosyn since 02/10 - ID consulted on 02/13/17. Appreciate input. Will followup with consult - Stop Zosyn on 02/13 and start Ertapenem 1 g IV q.24 h. # History of chronic hypertension. active - Continue with current meds # Reported chronic Type II diabetes. - Not on home med. - Sliding Scale Insulin, low dose. - Fingersticks have all been within normal limits. - Check HgA1C and stop fingersticks. # CAD- chronic. Presumed stable. - Continue with current meds # HLD- chronic, stable. - Continue statin. # Atrial fibrillation- chronic, stable. - Not on rate control or anticoagulation agent at . # History of Sick Sinus Syndrome s/p AICD - Followup Hx of CVA- chronic stable- c/w ASA. Dispo: likely 2-3 days pending further wound care management and ID treatment. GI Prophylaxis: H2 bautista VTE Prophylaxis: Sub-Q Enoxaparin VTE Mechanical Devices: Intermittant Pneumatic CD Resuscitation Status: DNR/DNI:Do Not Resuscitate/Intubate Jake Whatley Feb 13, 2017 16:40
[2017-02-13 17:10] VITALS: BP 133/74; PULSE 63; RESP 17; O2SAT 99
--- NOTE | 2017-02-13 17:44 | NUR ---
Social Work: Attempted Assessment/Multidisciplinary Rounds D: EMR reviewed. Pt is on day 3 of hospitalization. Pt discussed in multidisciplinary rounds, pt anticipated to remain in hospital 1-2 more days pending wound care - wound vac possible. Pt not appropriate historian. Pt diagnosed with Dementia at baseline. SW met pt's nephew/DPOA Mark Ledesma on is way out of hospital. ANN asked if pt had a relation to a woman named Pallavi per RN feedback. Mark stated that he is pt's DPOA and he knows of no one named Pallavi related to the pt. SW requested to call Mark to complete assessment. Mark agreeable. ANN placed T/C to Mark and left voicemail requesting call back. A: JAMES P: NATHALIE Stapleton
[2017-02-13 19:57] VITALS: PULSE 62; RESP 20; O2SAT 98
[2017-02-13 20:03] VITALS: BP 157/67; PULSE 63; RESP 16; O2SAT 98
[2017-02-14 05:06] VITALS: BP 127/67; PULSE 68; RESP 16; O2SAT 96
--- NOTE | 2017-02-14 05:50 | NUR ---
Pain/Meatus Pt is alert and responsive with baseline confusion. No s/s of pain noted. No acute resp distress and/or SOB. Suture on meatus is intact and julisa area cleaned and bacetracin ointment applied per orders with minimal drainage noted. Vega catheter in place, patent and draining yellow with no concerns. care continues.
[2017-02-14 08:07] VITALS: BP 142/70; PULSE 65; RESP 16; O2SAT 95
[2017-02-14] MEDS: Isosorbide Mononitrate 30 mg ER24 Tablet PO SCH (08:27)
[2017-02-14] MEDS: Famotidine Inj 20 MG in IV Premix 1 EACH IV SCH (08:27)
[2017-02-14] MEDS: Bacitracin Ointment Packet TOPICAL SCH (08:28)
[2017-02-14] MEDS: fentaNYL-PF 50 mCg/mL 2 mL Inj IV PRN (09:12)
--- NOTE | 2017-02-14 09:20 | NUR ---
Gave access to [facility].
--- NOTE | 2017-02-14 09:54 | NUR ---
Inpatient Wound Nurse Conversation completed with surgeon, Dr. Thomas, as well as Dr. Valencia who both agreed that once daily dressing changes with highly absorbent packing, such as Aquacel Extra Ag or other hydrofiber is reasonable dressing change regimen given patient's dementia, combative nature, and resistance to care. This morning packing was replaced by CWON, wound bed beefy red and granulating, small amount of sanguinous drainage, no periwound erythema. Removed Aquacel was non-odorous and saturated. After cleansing, new piece of Aquacel Extra Ag was placed into wound bed, then covered with ABD, all to be held in place with mesh panty. Patient tolerated care with minimal resistance. CWON will continue to follow.
--- NOTE | 2017-02-14 11:04 | NUR ---
CORRECTION TRANSFER: Called Nel Treat dean of admissions at [place] and left message regarding patient and potential for transfer today. Updated [employer]
[2017-02-14] MEDS ORDERED: Bacitracin TOPICAL (11:39)
[2017-02-14] MEDS ORDERED: CEFD300C3 PO (11:39)
[2017-02-14] MEDS ORDERED: Acetaminophen PO (11:39)
[2017-02-14] MEDS ORDERED: METR500T PO (11:39)
--- NOTE | 2017-02-14 11:47 | PCM.DIMED ---
Discharge Instructions Date of Service Feb 14, 2017 Dates of Hospitalization Feb 10, 2017 at 13:24 Discharge Diagnosis Discharge Diagnosis # Acute left scrotal abscess. Present on admission. Ongoing - Post incision and drainage of large scrotal abscess 4-5 cm in size, dorsal slit to the severely phimotic foreskin, and flexible cystoscopy on 02/10/17 # History of chronic hypertension. active # Reported chronic Type II diabetes. - Fingersticks have all been within normal limits during this hospital - HgA1C 6.1 # Chronic coronary artery disease. Presumed stable. # Chronic hyperlipidemia, stable. # Atrial fibrillation - chronic, stable. - Not on rate control or anticoagulation agents # History of Sick Sinus Syndrome post AICD placement in the past Diet Discharge Diet: Heart Healthy Activity Discharge Activity: No restrictions Call your provider Call your provider for: Fever or Chills, Shortness of breath, Bleeding, Chest pain, Excessive diarrhea Patient Instructions Patient Instructions Seek immediate medical attention if any new or worsening signs or symptoms occur. Continue daily wound dressing change as instructed by the wound nurse. Follow-up plan 1. Followup with urology (Dr. Thomas) on Monday02/27/17 at 11:[address] [address] 2. Followup with primary care provider (Dr. Schumacher) in 1-2 weeks 3. Followup at wound care clinic as instructed by the wound care nurse Follow-up Provider: Esther Thomas MD Follow-up with PCP in: Other ( Monday02/27/17 at 11:30 AM) Provider: Yasmin Schumacher MD, Masoud Feb 14, 2017 11:47
--- NOTE | 2017-02-14 11:58 | PROG NOTE ---
[address] [address] PROGRESS NOTE PATIENT: SHIMA TELLEZ V : 1930 MR#: [id number] ADMIT: 02/10/2017 JOB ID: [id number] DATE: 02/14/2017 REASON FOR FOLLOW UP: Scrotal abscess, status post extensive debridement. INTERVAL HISTORY: The patient is demented and his history is quite limited. He tells me he is not aware of having had any fevers or chills. He denies shortness of breath. He has no abdominal pain and says he is eating some of his food. He tells me he is not sure if he had a dressing change of his scrotal wound and, in fact, this was just done within the past hour by a nurse and wound risk management internship. PHYSICAL EXAMINATION: Reveals a comfortable gentleman, in no acute distress. Temp 36.5, pulse 65, respiratory rate 16, blood pressure 142/70. He is saturating well on room air and in no acute distress. His mentation is unchanged from yesterday in that he is oriented x1, which apparently is his baseline. Lungs are clear. Cardiac tones without new murmur. Abdomen benign. I did not remove the dressing as it is quite painful for him. It was just changed by the legal billing specialist who reports that there has been good granulation tissue. No surrounding erythema was noted and no malodorous area was noted. LABORATORY STUDIES: Include white blood count which has now normalized to 7300. No new chemistries today. Micro studies grew Providencia from the scrotal abscess, though it is mislabeled penis in the computer. His urine grew Enterococcus which is of unknown clinical significance. IMPRESSION: The patient seems to be doing well with respect to his scrotal abscess. I think it is reasonable to continue with once a day dressing changes rather than a wound VAC, as he would not likely tolerate that well at all. He is currently improving on our broad-spectrum coverage with ertapenem 1 g once a day, and I think that is very reasonable for the time being. RECOMMENDATIONS: 1. Will continue with ertapenem 1 g once a day. 2. When he is ready to switch to oral, I think cefdinir and Flagyl b.i.d. for each would be appropriate to complete two weeks of therapy, but at this point, his interests are probably best served by remaining here in the hospital a bit longer for good wound and supportive care.
[2017-02-14] MEDS: Ertapenem Inj 1,000 MG in 0.9% Sodium Chloride 50 ML IV SCH (13:12)
--- NOTE | 2017-02-14 14:06 | NUR ---
Social Work- Initial Assessment/Discharge Data: EMR reviewed. Pt discussed in multidisciplinary rounds. Pt is on day 4 of hospitalization for arthritis/testicular abscess. Pt is medically stable to d/c today. T/T to ZAINA Rosales, regarding assessment. Pt is total assistance at [facility] and will return there at d/c. Pt has no LT insurance or VA benefits. Pt has history at another facility in [place], [place] prior to [facility] but pt's son was unable to recall that name. 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 Pt has had caregivers 7 days a week for several years prior to residential placement. ANN informed pt's DPOA that although medical order has been received for BLS, it is never guaranteed that insurance will pay for BLS transport. DPOA states understanding. [facility] created packet and faxed orders to [facility]. ANN met with pt at bedside regarding d/c. Pt is agreeable to return home to [facility] at d/c. Paperwork in chart for RN. UC, pt/family, RN, and [facility] agreeable to plan. ANN received order for BLS transport back to [facility]. [facility] requested to schedule transport, scheduled via [facility] at 1430. Paperwork in chart. RN notified of d/c. 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 Plan: Paperwork in chart. Pt to d/c to [facility] via BLS at 1430. UC, pt/family, RN, and [facility] agreeable to plan. No additional d/c needs identified. NATHALIE Acuna Addendum: 02/14/17 at 1412 by MEHDI OSBORNE Amended: Links added.
--- NOTE | 2017-02-14 14:36 | NUR ---
JAIL TRANSFER: Arranged BLS transport via [facility] and lemon picker is scheduled for 1630. Updated PACKING MACHINE OPERATOR and Melly of transport time.
--- NOTE | 2017-02-14 14:39 | NUR ---
discharged per BLS to [facility], report called to SNF. IV removed, Vega left in place. Dressing change done this am. P with fairly severe dementia.
--- NOTE | 2017-02-14 16:28 | PCM.DC.MED ---
Discharge Summary Date of Service Feb 14, 2017 Dates of Hospitalization Date of Hospital Admission Feb 10, 2017 at 13:24 Date of Discharge: Feb 14, 2017 Providers: Admitting Physician: Rik Casey MD Primary Care Physician: Yasmin Schumacher MD Attending Physician: Jake Jain Diagnosis at Time of Discharge Diagnosis at Time of Discharge # Acute left scrotal abscess. Present on admission. Ongoing - Post incision and drainage of large scrotal abscess 4-5 cm in size, dorsal slit to the severely phimotic foreskin, and flexible cystoscopy on 02/10/17 # History of chronic hypertension. active # Reported chronic Type II diabetes. - Fingersticks have all been within normal limits during this hospital - HgA1C 6.1 # Chronic coronary artery disease. Presumed stable. # Chronic hyperlipidemia, stable. # Atrial fibrillation - chronic, stable. - Not on rate control or anticoagulation agents # History of Sick Sinus Syndrome post AICD placement in the past Consultations 1. Urology (Dr. Thomas) 2. ID (Dr. Valencia) Procedures XRay, CTs & MRIs Date of Service: 02/10/17 1056 PROCEDURE: US TESTICULAR SONOGRAM WITH DOPPLER IMPRESSION: 1. Heterogeneity of the testicles bilaterally with increased vascularity involving the left testicle raising the question of orchitis. Correlate clinically. Continued sonographic surveillance of both testicles is recommended. 2. Complex left hydrocele present with probable internal gas given the sonographic appearance and abscess (pyoocele) is suspected. Urologic consultation is recommended. 3. Bilateral epididymal cysts. Dictated by: Christopher Ayala RRA Interpreted: Chris Pritchett MD on 02/10/2017 at 13:50 Approved by: Chris Pritchett M.D. on 02/10/2017 at 14:26 Brief History As noted in H&P by Dr. Casey: 86 yo M h/o CAD, HTN, HLD, Atrial fibrillation, T2DM, Hx of Sick Sinus Syndrome s/p AICD, Hx of CVA, Hx of recurrent UTI's of severe dementia presenting with Left scrotal swelling. Pt is confused and note sure why in hospital. Pt can provide no history. History taken from chart and [facility]'s records. Per ED note- Her son reveals a left testicular abscess as well as epididymitis and intratesticular cyst. Treatment is initiated with morphine, Zosyn, vancomycin, IV fluids after discussion with Dr. Uriostegui. Dr. Thomas, agrees with plan to admit, reviews imaging and state the patient to surgery. .marginal blood pressures concerning for sepsis. Although he does not have an elevated lactic acid. The patient is however fully comfort care. However the scrotal abscess appears quite uncomfortable so management is being pursued. The plan is operative management in the OR. His receiving IV fluids, given the hypotension-is also receiving a dose of steroids. 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 The patient's had a Vega placed with a large amount of purulent material around the penis and under the foreskin identified. The patient's been started on vancomycin and Zosyn. Hospital Course # Reported acute sepsis on admission clinically ruled out # Acute left scrotal abscess. Present on admission. Ongoing - Post incision and drainage of large scrotal abscess 4-5 cm in size, dorsal slit to the severely phimotic foreskin, and flexible cystoscopy on 02/10/17 - Appreciate urology consult. - Continue with wound care - Vancomycin and Zosyn given in ED and then continued Zosyn since 02/10 - ID consulted on 02/13/17. Appreciate input. - Stop Zosyn on 02/13 and start Ertapenem 1 g IV q.24 h. - Will d/c home on Cefdinir and Flagyl b.i.d. to complete two weeks of therapy # History of chronic hypertension. active - Continued with home meds # Reported chronic Type II diabetes. - Not on home med. - Fingersticks have all been within normal limits. - Check HgA1C 6.1 # CAD- chronic. Presumed stable. - Continue with current meds # HLD- chronic, stable. - Continue statin. # Atrial fibrillation- chronic, stable. - Not on rate control or anticoagulation agent at home # History of Sick Sinus Syndrome s/p AICD - Followup as outpatient # Hx of CVA- chronic stable - c/w ASA. by day of d/c patient denies any pain or discomfort Exam Vital Signs (Last) Date Time Temp Pulse Resp B/P Pulse Ox O2 Delivery O2 Flow Rate FiO2 02/14/17 08:07 36.5 65 16 142/70 95 Room Air 02/10/17 18:12 3.00 Exam General: Alert, Cooperative, No Acute Distress Head: Normal Eyes: Scleral Anicteric Nose: Mucous Membr Moist/[place] Mouth: Mucous Membr Moist/[place] Neck: Supple Chest & Lungs: Chest Wall Normal, Clear to auscultation bilat Cardiovascular: Regular Rate/Rhythm Abdomen: Non-tender, Non-distended, Normoactive bowel tones, Soft Genitialial: Abnormal (scrotal dressing in place) Extremities: No cyanosis/clubbing/edema bilat Neurological: Grossly Neurologically Intact, Normal Speech Test 02/10/17 12:05 02/10/17 16:44 02/13/17 05:15 02/13/17 21:28 Lactic Acid Level 1.2mmol/L (0.4-2.0) Total Bilirubin 0.4mg/dL (0.0-1.2) Aspartate Amino Transf (AST/SGOT) 18U/L (0-50) Alanine Aminotransferase (ALT/SGPT) 19U/L (0-44) Alkaline Phosphatase 62U/L (25-160) Total Protein 6.8g/dL (6.4-8.4) Albumin 2.6g/dL (3.4-5.0) Lipase 23U/L (13-60) Cortisol 13.0ug/dL (.) Urine Color Straw (YELLOW) Urine Appearance Cloudy (CLEAR,HAZY) Urine pH 5.5 (5.0-8.0) Urine Specific [place] <1.005 (1.003-1.035) Urine Protein 30mg/dL (NEG,TRACE) Urine Glucose (UA) Negativemg/dL (NEGATIVE) Urine Ketones Negativemg/dL (NEGATIVE) Urine Occult Blood Large (NEGATIVE) Urine Nitrite Negative (NEGATIVE) Urine Bilirubin Negative (NEGATIVE) Urine Urobilinogen Normalmg/dL (NORMAL) Urine Leukocyte Esterase Large (NEGATIVE) Urine RBC 3-10/hpf (0-2) Urine WBC >50/hpf (0-5) Urine Epithelial Cells Few/hpf (NONE-MOD) Urine Crystals None seen (NONE SEEN) Urine Bacteria Moderate/hpf (NONE-FEW) Urine Hyaline Casts None/lpf (NONE) Urine Granular Casts None seen (NONE SEEN) Urine Waxy Casts None seen (NONE SEEN) Urine Red Blood Cell Casts None seen (NONE SEEN) Urine White Blood Cell Casts None seen (NONE SEEN) Urine Mucus None seen (None Seen) Urine Trichomonas None seen (NONE SEEN) Urine Yeast None (NONE SEEN) Urinalysis Comment None Urine Culture Reflexed Indicated White Blood Count 7.3th/mm3 (3.8-10.1) Red Blood Count 3.07mil/mm3 (4.40-5.80) Hemoglobin 9.5g/dL (13.8-17.2) Hematocrit 29.3% (41.0-50.0) Mean Corpuscular Volume 95fL (81-100) Mean Corpuscular Hemoglobin 30.9pg (27.0-35.0) Mean Corpuscular Hemoglobin Concent 32.4% (32.0-37.0) Red Cell Distribution Width 12.7% (12.3-15.4) Platelet Count 471bil/L (150-400) Neutrophils (%) (Auto) 58.4% (40-74) Lymphocytes (%) (Auto) 29.1% (14-46) Monocytes (%) (Auto) 5.4% (4-12) Eosinophils (%) (Auto) 5.9% (0-5) Basophils (%) (Auto) 0.4% (0-3) Band Neutrophils % 1% (1-5) Sodium Level 138mEq/L (134-144) Potassium Level 3.6mEq/L (3.5-5.2) Chloride Level 101mEq/L (97-108) Carbon Dioxide Level 24mmol/L (18-29) Blood Urea Nitrogen 12mg/dL (8-27) Creatinine 0.75mg/dL (0.76-1.27) Estimat Glomerular Filtration Rate 105mL/min (>59) Glucose Level 89mg/dL (60-99) Calcium Level 8.3mg/dL (8.5-10.1) Hemoglobin A1c 6.1% (4.8-5.6) Discharge Medications Discharge Medications ([Bacitracin]) 1 APPLIC/PKT OINT 1 APPLIC TOPICAL BID Prescribed by: JAKE JAIN MD Aspirin (Aspirin) 325 Mg Tablet 325 MG PO DAILY (Reported) Cefdinir (Cefdinir) 300 Mg Capsule 300 MG PO BID Prescribed by: JAKE JAIN MD Citalopram (Citalopram) 10 Mg Tablet 10 MG PO HS (Reported) Dextran 70/Hypromellose/Pf (Artificial Tears Drops) 1 Each Droperette 1 DROP BOTH_EYES TID (Reported) Isosorbide MN ER (Isosorbide MN ER) 30 Mg Tab.er.24h 30 MG PO DAILY (Reported) Levothyroxine Sodium (Levo-T) 50 Mcg Tablet 50 MCG PO DAILY (Reported) Losartan Potassium (Losartan Potassium) 25 Mg Tablet 12.5 MG PO DAILY (Reported ) Metronidazole (Flagyl) 500 Mg Tablet 500 MG PO BID Prescribed by: JAKE JAIN MD Multivitamin (Multivitamins) 1 Each Capsule 1 EACH PO DAILY (Reported) Oxybutynin Chloride ER (Oxybutynin Chloride ER) 10 Mg Tab.er.24 10 MG PO HS ( Reported) Pravastatin (Pravastatin) 40 Mg Tablet 40 MG PO HS (Reported) Tamsulosin (Flomax) 0.4 Mg Capsule 0.4 MG PO HS (Reported) Triclosan (Cetaphil) 1 Each Bar 1 EACH TP DAILY (Reported) As needed ([Acetaminophen]) 325 MG TABLET 325 MG PO Q4H PRN PRN For Mild Pain or Fever Prescribed by: JAKE JAIN MD Docusate Sodium (Colace) 100 Mg Capsule 100 MG PO DAILY PRN PRN For Constipation (Reported) Guaifenesin/Dextromethorphan (Robitussin Cough-Chest Dm Liq) 100 Mg-5 Mg/5 Ml Liquid 10 ML PO QID PRN PRN For Cough (Reported) Hc/Mineral Oil/Petrolat,Wht (Hydrocortisone 1% Absorbase) 25 Gm Oint...g. 1 APPLIC TP TID PRN PRN For Itching (Reported) Ipratropium/Albuterol Sulfate (Iprat-Albut 0.5-3(2.5) mg/3 mL Inhalant Soln) 3 Ml Ampul.neb 3 ML IH Q2 hours PRN PRN For Shortness of Breath (Reported) Magnesium Hydroxide (Milk of Magnesia) 400 Mg/5 Ml Oral.susp 30 ML PO DAILY PRN PRN For Constipation (Reported) Meclizine (Bonine) 25 Mg Tab.chew 25 MG PO QID PRN PRN For Dizziness (Reported) diphenhydrAMINE HCl (Benadryl) 25 Mg Capsule 25 MG PO QID PRN PRN For Itching ( Reported) Followup Plan Disposition: Dementia assisted living Follow-up plan 1. Followup with urology (Dr. Thomas) on Monday02/27/17 at 11:[address] [address] 2. Followup with primary care provider (Dr. Schumacher) in 1-2 weeks 3. Followup at wound care clinic as instructed by the wound care nurse Discharge Diet: Heart Healthy Discharge Activity: No restrictions Patient Instructions Seek immediate medical attention if any new or worsening signs or symptoms occur. Continue daily wound dressing change as instructed by the wound nurse. Follow-up Provider: Esther Thomas MD Follow-up with PCP in: Other ( Monday02/27/17 at 11:30 AM) Provider: Yasmin Schumacher MD Time spent 35 min copies to: Esther Thomas MD; Yasmin Schumacher MD, Masoud Feb 14, 2017 16:28
== END 2017-02-14 14:32 | DRG 728 ==
LOC: SED 10:31 → EDBD 10:31 → OSC 13:24
PROVIDERS: ADMIT Internal Medicine; ATTEND Internal Medicine
PROC: 0T9 Urinary System, Drainage (ICD-10-PCS; 2017-02-10)
PROC: 0V953ZX Drainage of Scrotum, Percutaneous Approach, Diagnostic (ICD-10-PCS; principal; 2017-02-10 15:00)
DX: N45.4 Abscess of epididymis or testis (principal); F03.90 Unspecified dementia, unspecified severity, without behavioral disturbance, psychotic disturbance, mood disturbance, and anxiety; N47.1 Phimosis; N45.3 Epididymo-orchitis; Z66 Do not resuscitate; Z95.0 Presence of cardiac pacemaker; Z86.73 Personal history of transient ischemic attack (TIA), and cerebral infarction without residual deficits; E11.9 Type 2 diabetes mellitus without complications; I25.10 Atherosclerotic heart disease of native coronary artery without angina pectoris; E78.5 Hyperlipidemia, unspecified; R15.9 Full incontinence of feces; I10 Essential (primary) hypertension